=== PATIENT | female | born 1945 | race Caucasian/White ===

== ENCOUNTER 2018-04-21 12:54 | Outpatient (CLI) | payer MEDICARE, BC ==
--- NOTE | 2018-04-21 15:57 | RAD ---
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 FINDINGS: There appears to be a lumbarized S1. There is moderate narrowing at L4-5 and L5-S1 disc spaces. Flexi on and extension was not performed. No acute fracture. No listhesis. IMPRESSION: Moderate spondylosis lower lumbar spine. POS: C
--- NOTE | 2018-04-21 16:27 | MRI ---
NONCONTRAST MRI LUMBAR SPINE 04/21/18 HISTORY: Congenital spondylolisthesis. Patient complains of low back pain with pain running down both legs. FINDINGS: There is a subcentimeter increased T2 weighted signal intensity focus in the mid portion left kidney which is difficult to further characterize due to its small size. The common duct where visualized is dilated measuring 9 mm. The entire right upper quadrant is not im aged. This could be related to reservoir effect secondary to cholecystectomy, but given inability to evaluate for cholecystectomy, clinical correlation is recommended. However, the patient has not had p rior cholecystectomy, right upper quadrant ultrasound would then be warranted. The conus medullaris terminates at the L1-2 level. There is CSF prominence within the central spinal cord suggesting a very tiny syrinx. This is more dilated than typically seen for the central canal of the spinal cord. The most superior extent of this syrinx is not imaged on this exam. Multilevel degenerative changes are seen in the lumbar spine. There are mild disc bulges present at the T10-11 and T11-12 levels which marrow the ventral subarachn oid spaces at these levels. Based on sagittal imaging, the neural foramina appear patent. T12-L1 level: No significant disc bulge or disc herniation. Central spinal canal and neural foramina are patent. L1-2 level: There is a mild disc bulge. The central spinal canal and neural foramina are patent. L2-3 level: There is mild loss of intervertebral disc height. There is a mild disc osteophyte complex which results in slight effacement of the ventral aspect of the thecal sac. Mild facet degenerative changes are present. There is no significant narrowing of the central spinal canal, and the neural fo ramina are patent. L3-4 level: There is mild broad based disc osteophyte complex and facet hypertrophic changes. The fin dings result in mild to moderate narrowing of the central spinal canal with mild bilateral neural for aminal narrowing. L4-5 level: There is loss of intervertebral disc height. A broad based disc osteophyte complex is pre sent. Prominent facet hypertrophic changes are present in addition to ligamentous thickening. Finding s result in moderate narrowing of the central spinal canal as well as narrowing of the lateral recess es. Moderate right and mild left sided neural foraminal narrowing is present. L5-S1 level: There are end plate degenerative changes noted. There is loss of intervertebral disc hei ght. Broad based disc osteophyte complex is present with what appears to be a central disc protrusion . There are severe facet hypertrophic changes noted. Findings result in severe narrowing of the centr al spinal canal with mild to moderate bilateral neural foraminal narrowing. IMPRESSION: 1. Tiny syrinx within the visualized distal spinal cord. The most superior extent is not imaged on this exam. As a result, MRI of the thoracic spine with and without contrast is recommended for fu rther evaluation. 2. Multilevel degenerative changes in the lumbar spine with findings greatest at the L4-5 and L5 -S1 levels. There is severe narrowing of the central spinal canal at the L5-S1 level related to a dis c bulge as well as central disc protrusion and prominent facet hypertrophic changes and ligamentous t hickening. 3. Dilatation of the common duct. The right upper quadrant is not well imaged due to saturation band overlying this region. This could be related to reservoir effect from prior cholecystectomy, but this cannot be evaluated on this examination. If the patient has not had prior cholecystectomy, righ t upper quadrant ultrasound is suggested for further evaluation. 4. Subcentimeter difficult to characterize hyperintense T2 lesions in the mid portion left kidmerissa y. POS: [facility]
== END 2018-04-21 12:55 | disposition home or self-care (01) ==
LOC: TBSIIMAG 12:54
PROVIDERS: ATTEND Neurological Surgery
DX: Q76.2 Congenital spondylolisthesis (principal); M47.896 Other spondylosis, lumbar region; M47.897 Other spondylosis, lumbosacral region; G95.0 Syringomyelia and syringobulbia; M48.07 Spinal stenosis, lumbosacral region; M51.87 Other intervertebral disc disorders, lumbosacral region; M51.27 Other intervertebral disc displacement, lumbosacral region; K83.8 Other specified diseases of biliary tract; N28.9 Disorder of kidney and ureter, unspecified
CPT/HCPCS: 72100; 72148

== ENCOUNTER 2018-07-28 11:46 | Outpatient (CLI) | payer MEDICARE, BC ==
[2018-07-28 12:53] LABS: Hemoglobin 12.3 g/dL (12.0-16.0); Mean Corpuscular HGB CONC 31.3 g/dL (32.0-36.0); Mean Corpuscular Hemoglobin 31.7 pg (27.0-31.0); Mean Platelet Volume 7.3 fL (7.4-10.4); Platelet Count 322 thou/uL (130-400); Red Blood Cell (RBC) Count 3.87 mill/uL (4.20-5.40); White Blood Cell (WBC) Count 8.3 thou/uL (4.8-10.8)
[2018-07-28 13:16] LABS: Anion Gap 12 mmol/L (10-20); BUN (Urea Nitrogen) 14 mg/dL (9.8-20.1); Calc. Creatinine Clearance 0 mL/min (70-130); Calcium 9.2 mg/dL (7.8-10.44); Carbon Dioxide 26 mmol/L (23-31); Chloride 106 mmol/L (98-107); Estimated GFR-MDRD 69; Glucose 82 mg/dL (83-110); Potassium 3.9 mmol/L (3.5-5.1); Sodium 140 mmol/L (136-145)
--- NOTE | 2018-07-28 16:49 | EKG ---
Test Reason : Blood Pressure : / mmHG Vent. Rate : 058 BPM Atrial Rate : 058 BPM P-R Int : 170 ms QRS Dur : 080 ms QT Int : 460 ms P-R-T Axes : 045 060 023 degrees QTc Int : 451 ms Sinus bradycardia Low voltage QRS Borderline ECG When compared with ECG of 29-MAR-2013 11:38, Premature ventricular complexes are no longer Present Confirmed by DR. Julia PAULINO (3) on 07/28/2018 4:48:48 PM Referred By: [place] Confirmed By:DR. Julia PAULINO
== END 2018-07-28 11:47 | disposition home or self-care (01) ==
LOC: LABBT 11:46
PROVIDERS: ATTEND Neurological Surgery
DX: Z01.818 Encounter for other preprocedural examination (principal); M48.062 Spinal stenosis, lumbar region with neurogenic claudication; R00.1 Bradycardia, unspecified
CPT/HCPCS: 80048; 85027; 93005; 93010

== ENCOUNTER 2018-07-31 06:11 | Observation (INO) | payer MEDICARE, BC ==
[2018-07-28 12:05] VITALS: BMI 27.4
[2018-07-31] MEDS ORDERED: HYDROmorphone 2 MG/ML VIAL ONE (07:19)
[2018-07-31] MEDS ORDERED: CEFAZOLIN 2 GM/50 ML BAG ONE (07:22)
[2018-07-31] MEDS ORDERED: Midazolam HCl 2 mg/2 ml Vial ONE (07:22)
[2018-07-31] MEDS ORDERED: Fentanyl 100 MCG/2 ML VIAL ONE ×3 (07:22→09:59)
--- NOTE | 2018-07-31 09:16 | OP ---
DATE OF PROCEDURE: 07/31/2018 SURGEON: Zenon Farrar M.D. PIT WORKER POWER SHOVEL: Florecita Burt PA-C. PROCEDURE: L5-S1 laminectomy. PROCEDURE IN DETAIL: The patient was brought to the operating room and intubated. She was rolled in the prone position on gel-filled chest rolls. Incision was made exposing L5 and S1 and our level wa s confirmed by x-ray. We performed inferior L5 and superior S1 laminectomies, completely decompressi ng the S1 nerve roots bilaterally. The wound was then extensively irrigated. Immaculate hemostasis was secured. Vancomycin powder was applied and the wound was closed in anatomic layers.
[2018-07-31] MEDS ORDERED: Promethazine HCl 25 MG/ML VIAL IM PRN ×2 (09:29→10:58)
[2018-07-31] MEDS ORDERED: Promethazine HCl 25 MG/ML VIAL SLOW IVP PRN (09:29)
[2018-07-31] MEDS ORDERED: Ondansetron HCl/PF 4 MG/2 ML Vial IVP PRN (09:29)
[2018-07-31] MEDS ORDERED: Morphine 4 MG/ML VIAL SLOW IVP PRN (10:58)
[2018-07-31] MEDS ORDERED: tiZANidine HCl 4 MG TAB PO PRN (10:58)
[2018-07-31] MEDS ORDERED: Milk Of Magnesia 30 ML UDCUP PO PRN (10:58)
[2018-07-31] MEDS ORDERED: Ondansetron PF 4 MG/2 ML Vial IM PRN (10:58)
[2018-07-31] MEDS ORDERED: Promethazine HCl 12.5 MG SUPP PR PRN (10:58)
[2018-07-31] MEDS ORDERED: traMADol HCl 50 MG TAB PO PRN ×2 (10:58)
[2018-07-31] MEDS ORDERED: Mag-Al 1200 mg/1200 mg/30 ML UDCUP PO PRN (10:58)
[2018-07-31] MEDS ORDERED: Promethazine 25 MG TAB PO PRN (10:58)
[2018-07-31] MEDS ORDERED: Acetaminophen/Codeine 30-300mg Tablet PO PRN (10:58)
[2018-07-31] MEDS: Sodium Chloride 0.9% 1,000 ML IV SCH (11:43)
[2018-07-31] MEDS ORDERED: CEFAZOLIN/Water 2 GM/20 ML SYRINGE SLOW IVP SCH (14:00)
[2018-07-31] MEDS ORDERED: PROPOFOL 200 MG/20 ML VIAL ONE (15:03)
[2018-07-31] MEDS ORDERED: Ondansetron PF 4 MG/2 ML Vial ONE (15:03)
[2018-07-31] MEDS ORDERED: Glycopyrrolate 0.2 MG/ML 5 ML SYRINGE ONE (15:03)
[2018-07-31] MEDS ORDERED: Lidocaine 1% PF 5 ML VIAL ONE (15:03)
[2018-07-31] MEDS ORDERED: PHENYLEPHRINE-NS 100 MCG/ML 10 ML SYRINGE ONE (15:03)
[2018-07-31] MEDS ORDERED: Dexamethasone 20 MG/5 ML VIAL ONE (15:03)
[2018-07-31] MEDS: CEFAZOLIN 2 GM/50 ML-DEXTROSE 2 GM in Premix Bag 1 BAG IVPB SCH ×2 (15:54→22:08)
[2018-07-31] MEDS ORDERED: Atorvastatin Calcium 20 MG TAB PO SCH (21:00)
[2018-08-01] MEDS: Sodium Chloride 0.9% 1,000 ML IV SCH ×2 (01:26→12:46)
[2018-08-01] MEDS: Acetaminophen/Codeine 30-300mg Tablet PO PRN ×2 (03:41→12:30)
[2018-08-01] MEDS ORDERED: Folic Acid 1 MG TAB PO SCH (09:00)
[2018-08-01] MEDS ORDERED: Ascorbic Acid 500 mg Chewable Tablet PO SCH (09:00)
[2018-08-01] MEDS ORDERED: Escitalopram Oxalate 20 mg Tablet PO SCH (09:00)
[2018-08-01] MEDS ORDERED: Multivitamin W/ Minerals 1 TAB PO SCH (09:00)
--- NOTE | 2018-08-01 12:08 | DIS-2 ---
DATE OF ADMISSION: 07/31/2018 DATE OF DISCHARGE: 08/01/2018 ATTENDING PHYSICIAN: Dr. Zenon Farrar HOSPITAL COURSE: The patient is a 73-year-old female, status post L5-S1 decompression for lumbar stenosis. Following her surgery, she was admitted to the med/surg control for pain control an d mobilization. Following her surgery, she did develop some nausea and vomiting, but this improved o vernight and the next morning after administration of Zofran and Phenergan. The following morning, s he was able to tolerate her breakfast. She reports significantly improved pain. She has been up amb ulating throughout the department and voiding appropriately. I have visited with the patient postoperative day #1. She is awake, alert, in no acute distress. Sh gautam is lying comfortably in the bed. She has 5/5 strength throughout. No focal motor weakness. Her i ncision is dry and intact. We will plan to dismiss the patient to home. I have provided her with prescription for hydrocodone, a muscle relaxer, and Phenergan for as needed nausea and vomiting. We discussed home care and she dover s been provided with a list of instructions. We will plan to follow up with the patient in approxima tely 2 weeks for recheck. Please reach out to Neurosurgery for additional questions or concerns.
[2018-08-01 12:09] VITALS: BP 161/77; TEMP 97.9
== END 2018-08-01 13:23 | disposition home or self-care (01) ==
LOC: SDC 06:11 → SURG B 10:22
PROVIDERS: ADMIT Neurological Surgery; ATTEND Neurological Surgery
PROC: 01NB0ZZ Release Lumbar Nerve, Open Approach (ICD-10-PCS; principal; 2018-07-31)
DX: M48.061 Spinal stenosis, lumbar region without neurogenic claudication (principal); M47.897 Other spondylosis, lumbosacral region; I10 Essential (primary) hypertension; E78.5 Hyperlipidemia, unspecified; Z79.899 Other long term (current) drug therapy; Z88.2 Allergy status to sulfonamides; Z88.5 Allergy status to narcotic agent
CPT/HCPCS: 63047; 76001; 96361; 96365; 96374; 96375; 96376; G0378; J1100; J1170; J2001; J2250; J2270; J2405; J2550; J2704; J3010; J3370

== ENCOUNTER 2018-08-21 10:58 | Inpatient (IN) | payer MEDICARE, BC ==
[2018-08-21 13:11] LABS: #Lymphocytes 2.3 thou/uL (1.20-3.40); #Monocytes 1.2 thou/uL (0.11-0.59); #Neutrophils 14.7 thou/uL (1.40-6.50); %Basophils 0.1 % (0.0-1.0); %Lymphocytes 12.6 % (21.0-51.0); %Monocytes 6.5 % (0.0-10.0); %Neutrophils 80.8 % (42.0-75.0); Hemoglobin 12.3 g/dL (12.0-16.0); Mean Corpuscular HGB CONC 32.5 g/dL (32.0-36.0); Mean Corpuscular Hemoglobin 31.9 pg (27.0-31.0); Mean Platelet Volume 7.4 fL (7.4-10.4); Platelet Count 338 thou/uL (130-400); RBC Distribution Width 11.2 % (11.5-14.5); Red Blood Cell (RBC) Count 3.87 mill/uL (4.20-5.40); White Blood Cell (WBC) Count 18.2 thou/uL (4.8-10.8)
[2018-08-21] MEDS ORDERED: Morphine 2 MG/ML SYRINGE ONE ×2 (13:16→14:42)
[2018-08-21 13:23] LABS: INR-International Normal Ratio 1.1; PTT 27.9 SEC (22.9-36.1); Prothrombin Time 14.3 SEC (12.0-14.7)
[2018-08-21 13:43] LABS: Anion Gap 14 mmol/L (10-20); BUN (Urea Nitrogen) 17 mg/dL (9.8-20.1); Calc. Creatinine Clearance 0 mL/min (70-130); Calcium 9.4 mg/dL (7.8-10.44); Carbon Dioxide 24 mmol/L (23-31); Chloride 103 mmol/L (98-107); Estimated GFR-MDRD 73; Glucose 116 mg/dL (83-110); Sodium 137 mmol/L (136-145)
[2018-08-21] MEDS ORDERED: PROPOFOL 200 MG/20 ML VIAL ONE (14:23)
[2018-08-21] MEDS ORDERED: Fentanyl 100 MCG/2 ML VIAL ONE ×5 (15:51→20:16)
[2018-08-21] MEDS ORDERED: Lidocaine 1% w/Epinephrine 1:100K 30 ML VIAL ONE (15:57)
[2018-08-21] MEDS ORDERED: CEFAZOLIN 2 GM/50 ML BAG ONE (16:09)
[2018-08-21] MEDS ORDERED: Midazolam HCl 2 mg/2 ml Vial ONE (16:25)
[2018-08-21] MEDS ORDERED: PROPOFOL 20 ML ONE (16:32)
[2018-08-21] MEDS ORDERED: Promethazine HCl 25 MG/ML VIAL SLOW IVP PRN (17:00)
[2018-08-21] MEDS ORDERED: Ondansetron HCl/PF 4 MG/2 ML Vial IVP PRN (17:00)
[2018-08-21] MEDS ORDERED: Promethazine HCl 25 MG/ML VIAL IM PRN ×2 (17:00→17:19)
[2018-08-21] MEDS ORDERED: Promethazine 25 MG TAB PO PRN (17:19)
[2018-08-21] MEDS ORDERED: diphenhydrAMINE 25 MG CAP PO PRN (17:19)
[2018-08-21] MEDS ORDERED: Promethazine HCl 12.5 MG SUPP PR PRN (17:19)
[2018-08-21] MEDS ORDERED: tiZANidine HCl 4 MG TAB PO PRN (17:19)
[2018-08-21] MEDS ORDERED: traMADol HCl 50 MG TAB PO PRN ×2 (17:19)
[2018-08-21] MEDS ORDERED: Mag-Al 1200 mg/1200 mg/30 ML UDCUP PO PRN (17:19)
[2018-08-21] MEDS ORDERED: Milk Of Magnesia 30 ML UDCUP PO PRN (17:19)
[2018-08-21] MEDS ORDERED: diphenhydrAMINE 50 MG/ML VIAL IVP PRN (17:19)
[2018-08-21] MEDS ORDERED: Ondansetron PF 4 MG/2 ML Vial IM PRN (17:21)
[2018-08-21 22:06] VITALS: BMI 27.4
[2018-08-21] MEDS ORDERED: Atorvastatin Calcium 20 MG TAB PO SCH (22:15)
[2018-08-21] MEDS: Morphine 4 MG/ML VIAL SLOW IVP PRN (22:29)
[2018-08-21] MEDS: Sodium Chloride 0.9% 1,000 ML IV SCH (22:46)
[2018-08-21] MEDS: CEFAZOLIN 2 GM/50 ML-DEXTROSE 2 GM in Premix Bag 1 BAG IVPB SCH (23:20)
--- NOTE | 2018-08-22 00:12 | HP ---
Ms. James is a 73-year-old woman, well known to me from a previous L5-S1 decompression, who has had issues with CSF drainage from the wound. She has failed oversewing this in the office, and I am recommending proceeding with placement of a lumbar drain and oversewing the wound with anesthesia support. I discussed this with her, and she expressed understanding and wished to proceed. Job ID: [id number]
--- NOTE | 2018-08-22 00:13 | OP ---
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 PROCEDURES PERFORMED: Oversewing lumbar wound and placement of lumbar drain. DESCRIPTION OF PROCEDURE: The patient was brought to the operating room and monitored anesthesia care was instituted. A lumbar drain was placed without difficulty at approximately the L3-L4 level. Using an 18-gauge needle, we percutaneously drained the CSF within the wound and approximately 50 mL was aspirated. We next oversew the wound using a locking running nylon suture. Job ID: [id number] [facility]
--- NOTE | 2018-08-22 00:55 | HP ---
HISTORY OF PRESENT ILLNESS: The patient is a 73-year-old relatively healthy female, status post L5-S1 laminectomy on 07/31/2018. Following her surgery, she developed wound drainage, which was clear and consistent with CSF. This was oversewn in the office, but drainage returned, therefore, the patient was brought to [facility] for plans for lumbar drain placement today. Her main complaint is low back pain and mild postural headaches and nausea. She denies any fever, leg weakness, numbness, tingling or bowel/bladder issues PAST MEDICAL HISTORY: Hypertension, hyperlipidemia, and autoimmune morphea. PAST SURGICAL HISTORY: Hysterectomy, splenectomy, and L5-S1 laminectomy. FAMILY HISTORY: Noncontributory. SOCIAL HISTORY: The patient does not smoke, drink or use any drugs. She is . ALLERGIES: SHE IS ALLERGIC TO, 1. SULFA. 2. VICODIN. REVIEW OF SYSTEMS: Per HPI. PHYSICAL EXAMINATION: GENERAL : The patient is sitting in the chair comfortably and in no acute distress. HEENT: Head, normocephalic and atraumatic. Eyes, PERRLA. Extraocular movements intact. ENT, oral mucosa is pink and intact, and moist. NECK: Her neck is nontender to palpation. She has very active range of motion. No meningismus. No nuchal rigidity. CARDIAC: Regular rate and rhythm. PULMONARY: She is breathing comfortably with symmetric chest expansion. No evidence of dyspnea. MUSCULOSKELETAL: Free active range of motion of all extremities. No focal motor weakness. BACK: She has a well-healing incision with 2 vertical mattress oversewn stitches in place along the middle incisions, there is a small area of CSF leakage over the anterior part of the incision. There is no redness, edema, or any signs of infection. She is tender to palpation diffusely over the incision and lower lumbar spine. NEUROLOGIC: A and O x4. No focal neurologic deficits. 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 She will be admitted today and a lumbar drain will be placed. We will plan to monitor on the Med-Surg floor and drain 10 mL an hour. She will also be treated with Ancef prophylactically. We will monitor the incision as well as the patients symptoms closely. Discussed this plan with Dr. Farrar, who is in agreement. Job ID: [id number] [facility]
[2018-08-22] MEDS: Sodium Chloride 0.9% 1,000 ML IV SCH ×2 (01:09→11:37)
[2018-08-22] MEDS: Morphine 4 MG/ML VIAL SLOW IVP PRN ×2 (06:17→08:34)
[2018-08-22] MEDS: CEFAZOLIN 2 GM/50 ML-DEXTROSE 2 GM in Premix Bag 1 BAG IVPB SCH ×2 (07:59→17:43)
[2018-08-22] MEDS: Ascorbic Acid 500 mg Chewable Tablet PO SCH (08:35)
[2018-08-22] MEDS: Folic Acid 1 MG TAB PO SCH (08:35)
[2018-08-22] MEDS: Escitalopram Oxalate 20 mg Tablet PO SCH (08:36)
[2018-08-22] MEDS: Multivitamin W/ Minerals 1 TAB PO SCH (08:36)
[2018-08-22] MEDS: HYDROcodone/Acetaminophen 10/325 mg Tablet PO PRN ×3 (13:05→23:14)
[2018-08-22] MEDS: Atorvastatin Calcium 20 MG TAB PO SCH (20:31)
[2018-08-23] MEDS: CEFAZOLIN 2 GM/50 ML-DEXTROSE 2 GM in Premix Bag 1 BAG IVPB SCH ×2 (00:23→08:15)
[2018-08-23] MEDS: HYDROcodone/Acetaminophen 10/325 mg Tablet PO PRN ×4 (05:33→21:24)
[2018-08-23] MEDS: Folic Acid 1 MG TAB PO SCH (08:16)
[2018-08-23] MEDS: Ascorbic Acid 500 mg Chewable Tablet PO SCH (08:16)
[2018-08-23] MEDS: Escitalopram Oxalate 20 mg Tablet PO SCH (08:16)
[2018-08-23] MEDS: Multivitamin W/ Minerals 1 TAB PO SCH (08:17)
[2018-08-23] MEDS: Sodium Chloride 0.9% 1,000 ML IV SCH (09:05)
[2018-08-23] MEDS ORDERED: Iopamidol 370 76% 100 ML VIAL ONE (10:43)
--- NOTE | 2018-08-23 14:52 | RAD ---
SINGLE VIEW OF THE CHEST: Comparison: None. History: Low oxygen saturation. FINDINGS: Single view of the chest shows an enlarged cardiomediastinal silhouette. There is no evidence of cons olidation, mass or pleural effusion. Hardware is seen in the cervical spine. IMPRESSION: No evidence of acute cardiopulmonary disease. POS: [facility]
[2018-08-23 15:18] LABS: #Eosinphils 0.1 thou/uL (0.0-0.7); #Lymphocytes 1.7 thou/uL (1.20-3.40); #Neutrophils 12.4 thou/uL (1.40-6.50); %Basophils 0.3 % (0.0-1.0); %Eosinophils 0.5 % (0.0-10.0); %Lymphocytes 10.9 % (21.0-51.0); %Monocytes 6.7 % (0.0-10.0); %Neutrophils 81.7 % (42.0-75.0); Hemoglobin 11.6 g/dL (12.0-16.0); Mean Corpuscular HGB CONC 32.1 g/dL (32.0-36.0); Mean Corpuscular Hemoglobin 31.8 pg (27.0-31.0); Mean Platelet Volume 7.5 fL (7.4-10.4); Platelet Count 282 thou/uL (130-400); RBC Distribution Width 11.1 % (11.5-14.5); Red Blood Cell (RBC) Count 3.64 mill/uL (4.20-5.40); White Blood Cell (WBC) Count 15.2 thou/uL (4.8-10.8)
[2018-08-23] MEDS ORDERED: Vancomycin HCl 1 GM in Premix Bag 1 BAG IVPB SCH (15:30)
[2018-08-23 15:36] LABS: Anion Gap 12 mmol/L (10-20); BUN (Urea Nitrogen) 12 mg/dL (9.8-20.1); Calc. Creatinine Clearance 80 mL/min (70-130); Calcium 8.8 mg/dL (7.8-10.44); Carbon Dioxide 24 mmol/L (23-31); Chloride 103 mmol/L (98-107); Estimated GFR-MDRD 88; Glucose 96 mg/dL (83-110); Potassium 3.6 mmol/L (3.5-5.1); Sodium 135 mmol/L (136-145)
--- NOTE | 2018-08-23 15:42 | CON ---
DATE OF CONSULTATION: HISTORY: Ms. James is doing quite well. She is having a modest headache, which is not surprising. She is not having much in the way of back and buttock pain, particularly compared to what it was before the placement of the lumbar drain. Her dressing remains reasonably dry. We will continue with the lumbar drainage, hopefully for a period of 1 full week if possible, but at least for 4 to 5 days depending on the drain function. I discussed the plan with her in detail. Job ID: [id number]
[2018-08-23] MEDS ORDERED: MEROPENEM 1 GM/50 ML 1 GM in Premix Bag 1 BAG IVPB SCH (16:00)
[2018-08-23] MEDS ORDERED: Acetaminophen 325 MG TAB PO PRN (16:37)
[2018-08-23] MEDS ORDERED: Sodium Chloride 0.9% 1,000 ML IV SCH (16:45)
[2018-08-23] MEDS ORDERED: Vancomycin HCl 1.75 GM in Sodium Chloride 0.9% 500 ML IVPB SCH (17:00)
[2018-08-23 17:03] LABS: CSF, Glucose 18 mg/dl (40-70)
[2018-08-23 17:23] LABS: ALT (SGPT) 12 U/L (8-55); AST (SGOT) 30 U/L (5-34); Albumin 3.8 g/dL (3.4-4.8); Alkaline Phosphatase 71 U/L (40-150); Bilirubin, Direct 0.2 mg/dL (0.1-0.3); Bilirubin, Total 0.3 mg/dL (0.2-1.2); Lipase 11 U/L (8-78); Protein, Total 6.7 g/dL (6.0-8.3)
[2018-08-23 17:32] LABS: CSF, Protein 278 mg/dL (15-40)
--- NOTE | 2018-08-23 17:34 | ULT ---
BILATERAL LOWER EXTREMITY VENOUS ULTRASOUND WITH DOPPLER: Date: 08/23/18 HISTORY: Evaluate for deep vein thrombus in the left and right lower extremity. COMPARISON: None. TECHNIQUE: Price scale, color flow, Doppler imaging, and spectral waveform analysis performed of the left and rig ht lower extremity venous system. FINDINGS: Bilaterally, there is compressibility, presence of flow, and augmentation in the common femoral, femo ral vein, and popliteal vein. There is flow in bilateral greater saphenous veins, profunda veins, and posterior tibial veins. IMPRESSION: No evidence of thrombus in the left or right lower extremity deep venous system. POS: [facility]
[2018-08-23 17:43] LABS: CSF Source CSF; Clarity Cloudy/Turbid (Clear); RBC Count - Manual 11 /cumm (None Seen); Tube # EDTA; WBC/NonHematics Count - Manual 3340 /cumm (0-5)
--- NOTE | 2018-08-23 17:44 | PDOC.PN ---
- Subjective Encounter Start Date: 08/23/18 Encounter Start Time: 16:00 Patient seen and examined for med mgnt. Mentation improvng. No cough/SOB/ wheezing/N/V. - Objective MAR Reviewed: Yes Vital Signs & Weight: Vital Signs (12 hours) Temp Pulse Resp BP Pulse Ox 08/23/18 16:00 95 08/23/18 15:00 100.1 F H 88 18 170/77 H 96 08/23/18 10:54 99.6 F 74 16 136/69 94 L 08/23/18 07:30 97.6 F 64 16 149/81 H 95 08/23/18 07:19 96 Weight Weight 150 lb 4.8 oz I&O: 08/22/18 08/23/18 08/24/18 06:59 06:59 06:59 Intake Total 260 Output Total 90 1530 110 Balance -90 -1270 -110 Result Diagrams: 08/23/18 15:04 08/23/18 15:04 Additional Labs: Microbiology 08/23/18 15:30 Lumbar Body Fluid Culture - Preliminary Laboratory Tests 08/23/18 08/23/18 08/23/18 15:04 15:30 15:30 ESR Westergren 24 Fluid Clarity Cloudy/Turbid H Fluid WBC (Manual) 3340 H Fluid RBC (Manual) 11 H Fluid Seg Neutrophil % 86 H* CSF Glucose 18 L CSF Total Protein 278 H Radiology Reviewed by me: Yes (CXR - No infiltrate) EKG Reviewed by me: Yes (Tele SR) Phys Exam - Physical Examination Ill appearing - Somnolent - opens eyes appropriately HEENT: PERRLA Neck: no nodes, no JVD Respiratory: no wheezing, no rales, no rhonchi, clear to auscultation bilateral Cardiovascular: RRR, no rub no heaves/pulsations Gastrointestinal: soft, non-tender, no distention, positive bowel sounds Musculoskeletal: no edema, pulses present Neurological: non-focal, normal sensation, moves all 4 limbs Psychiatric: normal affect, A&O x 3 (slow to respond) Skin: no rash, normal turgor Dx/Plan (1) Meningitis Code(s): G03.9 - MENINGITIS, UNSPECIFIED Status: Acute (2) Sepsis with acute organ dysfunction Code(s): A41.9 - SEPSIS, UNSPECIFIED ORGANISM; R65.20 - SEVERE SEPSIS WITHOUT SEPTIC SHOCK Status: Acute (3) HLD (hyperlipidemia) Code(s): E78.5 - HYPERLIPIDEMIA, UNSPECIFIED Status: Acute (4) HTN (hypertension) Code(s): I10 - ESSENTIAL (PRIMARY) HYPERTENSION Status: Acute (5) GERD (gastroesophageal reflux disease) Code(s): K21.9 - GASTRO-ESOPHAGEAL REFLUX DISEASE WITHOUT ESOPHAGITIS Status: Acute (6) Depression Code(s): F32.9 - MAJOR DEPRESSIVE DISORDER, SINGLE EPISODE, UNSPECIFIED Status : Acute - Plan DVT proph w/SCDs * IV Vancomycin to target trough between 20-30 per ID * IV Meropenem 2 gm Q8hr * Dr Castellon notified * Plan d/w primary service * Start IVF * AM labs * Thank you for this consultation. Will follow * Full code. DPOA - self Review of Systems - Review of Systems Respiratory: negative: Cough, Dry, Shortness of Breath, Hemoptysis, SOB with Excertion, Pleuritic Pain, Sputum, Wheezing Cardiovascular: negative: chest pain, palpitations, orthopnea, paroxysmal nocturnal dyspnea, edema, light headedness, other Gastrointestinal: negative: Nausea, Vomiting, Abdominal Pain, Diarrhea, Constipation, Melena, Hematochezia, Other Neurological: Confusion (earlier today), Other (headache - gen.). negative: Weakness, Numbness, Incoordination, Change in Speech, Seizures - Medications/Allergies Allergies/Adverse Reactions: Allergies Allergy/AdvReac Type Severity Reaction Status Date / Time hydrocodone [Hydrocodone] Allergy Verified 07/28/18 12:06 Sulfa (Sulfonamide Allergy Verified 07/28/18 12:06 Antibiotics) Medications: Current Medications Acetaminophen (Tylenol) 650 mg PO Q4H PRN PRN Reason: Headache/Fever/Mild Pain (1-3) Hydrocodone Bitart/Acetaminophen ([place] 10/325) 1 tab PO Q4H PRN PRN Reason: PAIN (1-3) Hydrocodone Bitart/Acetaminophen ([place] 10/325) 2 tab PO Q4H PRN PRN Reason: PAIN (4-6) Last Admin: 08/23/18 16:55 Dose: 2 tab Al Hydroxide/Mg Hydroxide (Maalox) 30 ml PO Q4H PRN PRN Reason: Heartburn or Indigestion Ascorbic Acid (Vitamin C) 1,000 mg PO DAILY [place] Last Admin: 08/23/18 08:16 Dose: 1,000 mg Atorvastatin Calcium (Lipitor) 20 mg PO HS [facility] Last Admin: 08/22/18 20:31 Dose: 20 mg Cholecalciferol (Vitamin D3) 1,000 units PO DAILY [facility] Last Admin: 08/23/18 08:17 Dose: 1,000 units Diphenhydramine HCl (Benadryl) 25 mg PO Q6H PRN PRN Reason: Itching Diphenhydramine HCl (Benadryl) 25 mg IVP Q6H PRN PRN Reason: Itching Escitalopram Oxalate (Lexapro) 20 mg PO DAILY [facility] Last Admin: 08/23/18 08:16 Dose: 20 mg Folic Acid (Folvite) 0.5 mg PO DAILY [facility] Last Admin: 08/23/18 08:16 Dose: 0.5 mg Meropenem 1 gm/ Device 50 mls @ 100 mls/hr IVPB 0800,1600,2359 [facility] Last Admin: 08/23/18 17:02 Dose: 50 mls Vancomycin HCl 1.75 gm/ Sodium (Chloride) 500 mls @ 250 mls/hr IVPB NOW [place] Stop: 08/23/18 20:00 Last Admin: 08/23/18 17:02 Dose: 500 mls Vancomycin HCl 1.25 gm/ Sodium (Chloride) 250 mls @ 166.667 mls/hr IVPB Q24HR@ 1700 [facility] Sodium Chloride (Normal Saline 0.9%) 1,000 mls @ 125 mls/hr IV .Q8H [facility] Last Admin: 08/23/18 16:54 Dose: 1,000 mls Iron/Minerals/Multivitamins (Theragran M) 1 tab PO DAILY [facility] Last Admin: 08/23/18 08:17 Dose: 1 tab Magnesium Hydroxide (Milk Of Magnesium) 30 ml PO Q12H PRN PRN Reason: Constipation Miscellaneous Medication (Pharmacy To Dose) 1 each IVPB PRN PRN PRN Reason: Pharmacy to dose Morphine Sulfate (Morphine) 4 mg SLOW IVP Q1H PRN PRN Reason: SEVERE BREAKTHROUGH PAIN Last Admin: 08/22/18 08:34 Dose: 4 mg Morphine Sulfate (Morphine) 2 mg SLOW IVP Q1H PRN PRN Reason: Moderate Breakthrough Pain Last Admin: 08/22/18 06:17 Dose: 2 mg Ondansetron HCl (Zofran) 4 mg IM Q8H PRN PRN Reason: Nausea/Vomiting Last Admin: 08/23/18 10:07 Dose: 4 mg Pantoprazole Sodium (Protonix) 40 mg PO DAILY [facility] Last Admin: 08/23/18 08:17 Dose: 40 mg Promethazine HCl (Phenergan) 12.5 mg IM Q4H PRN PRN Reason: Nausea/Vomiting Promethazine HCl (Phenergan) 12.5 mg PO Q4H PRN PRN Reason: Nausea/Vomiting Promethazine HCl (Phenergan Suppository) 12.5 mg UT Q4H PRN PRN Reason: Nausea/Vomiting Senna/Docusate Sodium (Senokot S) 2 tab PO BID [facility] Sodium Chloride (Flush - Normal Saline) 10 ml IVF Q12HR [facility] Last Admin: 08/23/18 08:21 Dose: 10 ml Sodium Chloride (Flush - Normal Saline) 10 ml IVF PRN PRN PRN Reason: Saline Flush Last Admin: 08/23/18 00:24 Dose: 10 ml Tizanidine HCl (Zanaflex) 4 mg PO Q6H PRN PRN Reason: MUSCLE SPASM Tramadol HCl (Ultram) 50 mg PO Q6H PRN PRN Reason: PAIN (1-3) Tramadol HCl (Ultram) 100 mg PO Q6H PRN PRN Reason: PAIN (4-6)
[2018-08-23 17:48] LABS: Cell Count Non Hematic 2 %; Lymphocytes 12 %; Segmented Neutrophils 86 %
[2018-08-23 18:02] LABS: Bilirubin Negative (Negative); Blood, Urine Negative (Negative); Clarity CLEAR (Clear); Glucose, Urine (Dipstick) Negative (Negative); Leukocyte Negative (Negative); Nitrite Negative (Negative); Protein, Urine (Dipstick) Trace mg/dL (Neg-Trace); Urobilinogen 0.2 mg/dL (0.2-1.0); pH, Urine 5.5 (5.0-9.0)
[2018-08-23 18:06] LABS: Specific Gravity, Urine 1.044 (1.002-1.036)
--- NOTE | 2018-08-23 18:16 | CT ---
CTA THORAX WITH CONTRAST: 08/23/18 at 3:58 p.m. (Computed Tomographic Angiography, chest(noncoronary) with contrast material, and image postprocessin g) (PE protocol) HISTORY: 73-year-old female with dyspnea. TECHNIQUE: IV injection of iodinated contrast: 100 mL of Isovue 370. Scan acquisition timing attempted to coincide with iodinated contrast bolus reaching maximal density in pulmonary arteries. 3D MIP reconstructions. FINDINGS: There is no evidence of pulmonary thromboembolism. Tortuosity and mild ectasia of great vessels. Mild cardiomegaly. Tiny left pleural effusion. No right pleural effusion. Broad, thin, flat rind of depen dent atelectasis at the posterior aspects of the bilateral lower lobes broadly abutting the posterior pleural surfaces. Small plate-like pulmonary opacity at medial base of left lower lobe consistent wi th another region of subsegmental atelectasis. No consolidation in the upper lobes. No pneumothorax. Mildly enlarged mediastinal lymph nodes, nonspecific. There is a thin catheter within the lower thora cic spinal canal and upper lumbar spinal canal, incompletely visualized. IMPRESSION: 1. No evidence of pulmonary thromboembolism. 2. Other findings as described above. damon[] POS: [facility]
[2018-08-23] MEDS: D5 1/2 NS w/20 mEq KCL 1,000 ML IV SCH (18:43)
[2018-08-23] MEDS: Senokot S 8.6-50 MG TAB PO SCH (19:55)
[2018-08-23] MEDS: Atorvastatin Calcium 20 MG TAB PO SCH (19:55)
[2018-08-23] MEDS: Morphine 4 MG/ML VIAL SLOW IVP PRN (19:56)
[2018-08-23] MEDS: Meropenem 2 GM, Admixture Fee 1 EACH in Sodium Chloride 0.9% 100 ML IVPB SCH (21:26)
[2018-08-24] MEDS: HYDROcodone/Acetaminophen 10/325 mg Tablet PO PRN ×4 (02:59→19:59)
[2018-08-24] MEDS: D5 1/2 NS w/20 mEq KCL 1,000 ML IV SCH ×2 (02:59→15:08)
[2018-08-24 04:29] LABS: #Basophils 0.1 thou/uL (0.0-0.2); #Eosinphils 0.1 thou/uL (0.0-0.7); #Lymphocytes 2.9 thou/uL (1.20-3.40); #Monocytes 1.7 thou/uL (0.11-0.59); #Neutrophils 11.3 thou/uL (1.40-6.50); %Basophils 0.4 % (0.0-1.0); %Eosinophils 0.3 % (0.0-10.0); %Lymphocytes 18.2 % (21.0-51.0); %Monocytes 10.5 % (0.0-10.0); %Neutrophils 70.6 % (42.0-75.0); Hemoglobin 10.4 g/dL (12.0-16.0); Mean Corpuscular HGB CONC 33.8 g/dL (32.0-36.0); Mean Corpuscular Hemoglobin 33.7 pg (27.0-31.0); Mean Corpuscular Volume 99.6 fL (78.0-98.0); Mean Platelet Volume 7.6 fL (7.4-10.4); Platelet Count 276 thou/uL (130-400); RBC Distribution Width 11.1 % (11.5-14.5); Red Blood Cell (RBC) Count 3.08 mill/uL (4.20-5.40); White Blood Cell (WBC) Count 16.1 thou/uL (4.8-10.8)
[2018-08-24 04:47] LABS: ALT (SGPT) 8 U/L (8-55); AST (SGOT) 21 U/L (5-34); Albumin 3.3 g/dL (3.4-4.8); Alkaline Phosphatase 59 U/L (40-150); Anion Gap 10 mmol/L (10-20); BUN (Urea Nitrogen) 8 mg/dL (9.8-20.1); Bilirubin, Total 0.5 mg/dL (0.2-1.2); Calc. Creatinine Clearance 86 mL/min (70-130); Calcium 8.4 mg/dL (7.8-10.44); Carbon Dioxide 28 mmol/L (23-31); Chloride 104 mmol/L (98-107); Estimated GFR-MDRD Greater than 90; Globulin 2.5 g/dL (2.4-3.5); Glucose 119 mg/dL (83-110); Magnesium 2.1 mg/dL (1.6-2.6); Potassium 3.6 mmol/L (3.5-5.1); Protein, Total 5.8 g/dL (6.0-8.3); Sodium 138 mmol/L (136-145)
[2018-08-24] MEDS: Vancomycin HCl 1.25 GM in Sodium Chloride 0.9% 250 ML 250 ML IVPB SCH ×2 (05:04→16:59)
[2018-08-24] MEDS: Meropenem 2 GM, Admixture Fee 1 EACH in Sodium Chloride 0.9% 100 ML IVPB SCH ×3 (06:35→21:49)
[2018-08-24] MEDS: Saccharomyces boulardii 250 MG CAP PO SCH (09:30)
[2018-08-24] MEDS: Senokot S 8.6-50 MG TAB PO SCH ×2 (09:30→20:00)
[2018-08-24] MEDS: Folic Acid 1 MG TAB PO SCH (09:30)
[2018-08-24] MEDS: Ascorbic Acid 500 mg Chewable Tablet PO SCH (09:30)
[2018-08-24] MEDS: Escitalopram Oxalate 20 mg Tablet PO SCH (09:31)
[2018-08-24] MEDS: Multivitamin W/ Minerals 1 TAB PO SCH (09:31)
--- NOTE | 2018-08-24 13:53 | PRG ---
DATE OF SERVICE: 08/24/2018 SUBJECTIVE: Ms. James is alert and appropriate today. Yesterday, she spiked a fever, had some modest change in mentation and generally felt terrible. An evaluation included CT angiography and ultrasound of the legs, which was negative for pulmonary embolus. No other specific focus of infection has been found with the exception of CSF studies that revealed elevated white count, elevated protein, and decreased glucose. Gram-stain was negative for bacteria. The patient certainly is at risk for meningitis given the CSF fistula that she had for some days prior to hospitalization. Postsurgical, the CSF findings could be inflammatory; however, I agree with the broad-spectrum antibiotics. Appreciate the excellent medical care. We anticipate continuing lumbar drainage through the weekend. Job ID: [id number]
[2018-08-24] MEDS: Morphine 4 MG/ML VIAL SLOW IVP PRN (17:00)
[2018-08-24] MEDS ORDERED: Vancomycin HCl 1.25 GM in Sodium Chloride 0.9% 250 ML 250 ML IVPB SCH (17:00)
[2018-08-24] MEDS: Atorvastatin Calcium 20 MG TAB PO SCH (20:00)
--- NOTE | 2018-08-24 21:13 | CON ---
DATE OF CONSULTATION: REASON FOR CONSULTATION: Meningitis. HISTORY OF PRESENT ILLNESS: A 73-year-old with history of hypertension and some autoimmune phenomena in the past, who developed radiculopathy and underwent laminectomy L5-S1 in mid July this year. Developed CSF leak, which has failed conservative management and she was admitted for lumbar drain on 08/21 and now developed meningitis. She has been started on broad-spectrum coverage. She is feeling better today. No headaches at this moment. No sore throat, odynophagia , or dysphagia. No vomiting. No respiratory symptoms or abdominal pain, a little bit of back pain. No more radiculopathy symptoms. No joint symptoms. PAST MEDICAL HISTORY: Hypertension, hyperlipidemia, and some form of autoimmune disease. SURGICAL HISTORY: Hysterectomy, splenectomy, and L5-S1 laminectomy. FAMILY HISTORY: Noncontributory. SOCIAL HISTORY: Nonsmoker. . ALLERGIES: SULFA DRUGS AND VICODIN. VICODIN ALLERGY IS MORE OF AN ADVERSE REACTION. CURRENT MEDICATIONS: 1. [place]. 2. Maalox. 3. Vitamin C. 4. Lipitor. 5. Lexapro. 6. Folvite. 7. Meropenem. 8. Morphine. 9. Protonix. 10. Phenergan. 11. Senokot. 12. Zanaflex. 13. Ultram. 14. Vancomycin. PHYSICAL EXAMINATION: VITAL SIGNS: T-max 100.6. She is currently afebrile. BP 108/91, pulse 66, respirations 16, and O2 saturation 100%, and the patient has a peripheral IV access in lumbar drain. The CSF is kind of cloudy. HEENT: No lymphadenopathy. Ocular movements are conjugate. Pupils are equal. Nose and oral cavity exam normal. NECK: A little stiff. HEART: S1 and S2. Regular rate. LUNGS: Clear to auscultation and percussion. ABDOMEN: Soft, nondistended, and nontender. EXTREMITIES: Moves extremities equally. Pulses are 1+ in dorsalis pedis. Cognitive function appears to be intact. LABORATORY DATA: White cell count of 18,000, down to 16,000 at this moment; hemoglobin 10.4; platelets 276; and differential with 80% neutrophils, down to 70% neutrophils at this time. Her creatinine is normal. Liver profile normal. Albumin 3.3, down from 3.8. Urinalysis with 40 ketones, otherwise normal. CSF with 3300 WBCs, predominance of mature neutrophils. Glucose 18 and protein 278. Microbiology, the Gram stain did not show any organisms and no growth at 12 hours. Blood cultures no growth thus far. We have a chest CT done on admission with angiogram with no pulmonary embolism. ASSESSMENT: Laminectomy L5-S1 with CSF leak and meningitis, which is associated with the foreign body in the subarachnoid space. Usual pathogens including methicillin-susceptible Staphylococcus aureus/methicillin-resistant Staphylococcus aureus, gram-negative rods, streptococci and enterococcus are the more likely pathogens involved in this kind of process. Yeast or Amarilis species less likely, but can happen sometimes. Continue current regimen. Awaiting for culture results. Hopefully, foreign body can be removed maybe Tuesday and then continuation of antimicrobial therapy for probably around 7 to 10 days following the completion of the lumbar drain procedure. If staphylococci is retrieved, then I would extend that for 21 days total duration of antimicrobial therapy. Job ID: [id number] [facility]
--- NOTE | 2018-08-24 22:18 | PDOC.PN ---
- Subjective Encounter Start Date: 08/24/18 Encounter Start Time: 10:00 Patient seen and examined for med mngt. Feels better. No new complaints. No overnight events - Objective MAR Reviewed: Yes Vital Signs & Weight: Vital Signs (12 hours) Temp Pulse Resp BP Pulse Ox 08/24/18 19:46 98.1 F 76 18 124/65 90 L 08/24/18 15:09 98.6 F 69 16 110/55 L 98 08/24/18 10:54 97.9 F 66 16 108/91 H 100 Weight Weight 150 lb 4.8 oz I&O: 08/23/18 08/24/18 08/25/18 06:59 06:59 06:59 Intake Total 260 1940 1800 Output Total 8800 655 7727 Balance -1270 1100 240 Result Diagrams: 08/25/18 05:01 08/25/18 05:01 Additional Labs: Accuchecks 08/23/18 17:28 POC Glucose 120 H Microbiology 08/23/18 16:45 Urine voided Urine Culture - Preliminary NO GROWTH AT 24 HOURS 08/23/18 15:30 Lumbar Body Fluid Culture - Preliminary 08/23/18 15:10 Venous blood - Right Arm Blood Culture - Preliminary Specimen has been received and culture in progress. No Growth to date. 08/23/18 15:04 Venous blood - Left Arm Blood Culture - Preliminary Specimen has been received and culture in progress. No Growth to date. EKG Reviewed by me: Yes (Tele SR) Phys Exam - Physical Examination Constitutional: NAD Neck: no JVD no neck stiffness Respiratory: no wheezing, no rhonchi Cardiovascular: RRR, no rub Gastrointestinal: soft, non-tender, positive bowel sounds Musculoskeletal: no edema Neurological: moves all 4 limbs Dx/Plan (1) Meningitis Code(s): G03.9 - MENINGITIS, UNSPECIFIED Status: Suspected (2) Sepsis with acute organ dysfunction Code(s): A41.9 - SEPSIS, UNSPECIFIED ORGANISM; R65.20 - SEVERE SEPSIS WITHOUT SEPTIC SHOCK Status: Acute Comment: prob due to #1 (3) HLD (hyperlipidemia) Code(s): E78.5 - HYPERLIPIDEMIA, UNSPECIFIED Status: Chronic (4) HTN (hypertension) Code(s): I10 - ESSENTIAL (PRIMARY) HYPERTENSION Status: Chronic (5) GERD (gastroesophageal reflux disease) Code(s): K21.9 - GASTRO-ESOPHAGEAL REFLUX DISEASE WITHOUT ESOPHAGITIS Status: Chronic (6) Depression Code(s): F32.9 - MAJOR DEPRESSIVE DISORDER, SINGLE EPISODE, UNSPECIFIED Status : Chronic - Plan continue antibiotics, DVT proph w/SCDs Cultures negative -: Reduce IVF rate -: AM labs Review of Systems - Review of Systems Respiratory: negative: Cough, Dry, Shortness of Breath, Hemoptysis, SOB with Excertion, Pleuritic Pain, Sputum, Wheezing Cardiovascular: negative: chest pain, palpitations, orthopnea, paroxysmal nocturnal dyspnea, edema, light headedness, other - Medications/Allergies Allergies/Adverse Reactions: Allergies Allergy/AdvReac Type Severity Reaction Status Date / Time hydrocodone [Hydrocodone] Allergy Verified 07/28/18 12:06 Sulfa (Sulfonamide Allergy Verified 07/28/18 12:06 Antibiotics) Medications: Current Medications Acetaminophen (Tylenol) 650 mg PO Q4H PRN PRN Reason: Headache/Fever/Mild Pain (1-3) Hydrocodone Bitart/Acetaminophen ([place] 10/325) 1 tab PO Q4H PRN PRN Reason: PAIN (1-3) Hydrocodone Bitart/Acetaminophen ([place] 10/325) 2 tab PO Q4H PRN PRN Reason: PAIN (4-6) Last Admin: 08/24/18 19:59 Dose: 2 tab Al Hydroxide/Mg Hydroxide (Maalox) 30 ml PO Q4H PRN PRN Reason: Heartburn or Indigestion Ascorbic Acid (Vitamin C) 1,000 mg PO DAILY [facility] Last Admin: 08/24/18 09:30 Dose: 1,000 mg Atorvastatin Calcium (Lipitor) 20 mg PO HS [facility] Last Admin: 08/24/18 20:00 Dose: 20 mg Cholecalciferol (Vitamin D3) 1,000 units PO DAILY [facility] Last Admin: 08/24/18 09:30 Dose: 1,000 units Escitalopram Oxalate (Lexapro) 20 mg PO DAILY [facility] Last Admin: 08/24/18 09:31 Dose: 20 mg Folic Acid (Folvite) 0.5 mg PO DAILY [facility] Last Admin: 08/24/18 09:30 Dose: 0.5 mg Meropenem 2 gm/ Miscellaneous Medication 1 each/ Sodium Chloride 100 mls @ 0 mls/hr IVPB Q8HR [facility] Last Admin: 08/24/18 21:49 Dose: 100 mls Vancomycin HCl 1.25 gm/ Sodium (Chloride) 250 mls @ 166.667 mls/hr IVPB 0500, 1700 [facility] Last Admin: 08/24/18 16:59 Dose: 250 mls Potassium Chloride/Dextrose/Sod Cl (D5 1/2 Ns W/20 Meq Kcl) 1,000 mls @ 120 mls /hr IV .Q8H20M [facility] Last Admin: 08/24/18 15:08 Dose: 1,000 mls Iron/Minerals/Multivitamins (Theragran M) 1 tab PO DAILY [facility] Last Admin: 08/24/18 09:31 Dose: 1 tab Magnesium Hydroxide (Milk Of Magnesium) 30 ml PO Q12H PRN PRN Reason: Constipation Miscellaneous Medication (Pharmacy To Dose) 1 each IVPB PRN PRN PRN Reason: Pharmacy to dose Morphine Sulfate (Morphine) 4 mg SLOW IVP Q1H PRN PRN Reason: SEVERE BREAKTHROUGH PAIN Last Admin: 08/22/18 08:34 Dose: 4 mg Morphine Sulfate (Morphine) 2 mg SLOW IVP Q1H PRN PRN Reason: Moderate Breakthrough Pain Last Admin: 08/24/18 17:00 Dose: 2 mg Ondansetron HCl (Zofran) 4 mg IM Q8H PRN PRN Reason: Nausea/Vomiting Last Admin: 08/23/18 10:07 Dose: 4 mg Pantoprazole Sodium (Protonix) 40 mg PO DAILY [facility] Last Admin: 08/24/18 09:30 Dose: 40 mg Promethazine HCl (Phenergan) 12.5 mg IM Q4H PRN PRN Reason: Nausea/Vomiting Promethazine HCl (Phenergan) 12.5 mg PO Q4H PRN PRN Reason: Nausea/Vomiting Promethazine HCl (Phenergan Suppository) 12.5 mg [place] Q4H PRN PRN Reason: Nausea/Vomiting Saccharomyces Boulardii (Florastor) 250 mg PO DAILY [facility] Last Admin: 08/24/18 09:30 Dose: 250 mg Senna/Docusate Sodium (Senokot S) 2 tab PO BID [facility] Last Admin: 08/24/18 20:00 Dose: 2 tab Sodium Chloride (Flush - Normal Saline) 10 ml IVF Q12HR [facility] Last Admin: 08/24/18 20:02 Dose: 10 ml Sodium Chloride (Flush - Normal Saline) 10 ml IVF PRN PRN PRN Reason: Saline Flush Last Admin: 08/23/18 00:24 Dose: 10 ml Tizanidine HCl (Zanaflex) 4 mg PO Q6H PRN PRN Reason: MUSCLE SPASM Tramadol HCl (Ultram) 50 mg PO Q6H PRN PRN Reason: PAIN (1-3) Tramadol HCl (Ultram) 100 mg PO Q6H PRN PRN Reason: PAIN (4-6)
[2018-08-25] MEDS: D5 1/2 NS w/20 mEq KCL 1,000 ML IV SCH ×4 (03:58→20:06)
[2018-08-25] MEDS: Vancomycin HCl 1.25 GM in Sodium Chloride 0.9% 250 ML 250 ML IVPB SCH ×2 (04:05→17:11)
[2018-08-25] MEDS: HYDROcodone/Acetaminophen 10/325 mg Tablet PO PRN ×3 (05:02→15:59)
[2018-08-25 05:40] LABS: #Basophils 0.1 thou/uL (0.0-0.2); #Eosinphils 0.3 thou/uL (0.0-0.7); #Lymphocytes 3.1 thou/uL (1.20-3.40); #Monocytes 1.5 thou/uL (0.11-0.59); #Neutrophils 8.2 thou/uL (1.40-6.50); %Basophils 0.7 % (0.0-1.0); %Eosinophils 2.5 % (0.0-10.0); %Lymphocytes 23.5 % (21.0-51.0); %Monocytes 11.2 % (0.0-10.0); %Neutrophils 62.1 % (42.0-75.0); Hemoglobin 11.4 g/dL (12.0-16.0); Mean Corpuscular HGB CONC 33.2 g/dL (32.0-36.0); Mean Corpuscular Hemoglobin 33.2 pg (27.0-31.0); Mean Corpuscular Volume 99.8 fL (78.0-98.0); Mean Platelet Volume 7.8 fL (7.4-10.4); Platelet Count 315 thou/uL (130-400); RBC Distribution Width 11.1 % (11.5-14.5); Red Blood Cell (RBC) Count 3.42 mill/uL (4.20-5.40); White Blood Cell (WBC) Count 13.1 thou/uL (4.8-10.8)
[2018-08-25 05:56] LABS: ALT (SGPT) 12 U/L (8-55); AST (SGOT) 24 U/L (5-34); Albumin 3.4 g/dL (3.4-4.8); Alkaline Phosphatase 66 U/L (40-150); Anion Gap 12 mmol/L (10-20); BUN (Urea Nitrogen) 4 mg/dL (9.8-20.1); Bilirubin, Total 0.4 mg/dL (0.2-1.2); Calc. Creatinine Clearance 90 mL/min (70-130); Calcium 8.7 mg/dL (7.8-10.44); Carbon Dioxide 26 mmol/L (23-31); Chloride 105 mmol/L (98-107); Estimated GFR-MDRD Greater than 90; Globulin 2.7 g/dL (2.4-3.5); Glucose 95 mg/dL (83-110); Potassium 3.7 mmol/L (3.5-5.1); Protein, Total 6.1 g/dL (6.0-8.3); Sodium 139 mmol/L (136-145)
[2018-08-25] MEDS: Meropenem 2 GM, Admixture Fee 1 EACH in Sodium Chloride 0.9% 100 ML IVPB SCH ×3 (06:00→22:01)
[2018-08-25] MEDS: Folic Acid 1 MG TAB PO SCH (08:32)
[2018-08-25] MEDS: Ascorbic Acid 500 mg Chewable Tablet PO SCH (08:32)
[2018-08-25] MEDS: Escitalopram Oxalate 20 mg Tablet PO SCH (08:32)
[2018-08-25] MEDS: Multivitamin W/ Minerals 1 TAB PO SCH (08:33)
[2018-08-25] MEDS: Saccharomyces boulardii 250 MG CAP PO SCH (08:33)
[2018-08-25] MEDS: Senokot S 8.6-50 MG TAB PO SCH ×2 (08:34→20:07)
--- NOTE | 2018-08-25 15:15 | PRG ---
DATE OF SERVICE: 08/25/2018 SUBJECTIVE: Ms. James is feeling well and clinically stable overall. She has not had recurrent fever. Lumbar drain continues to be functional. Microbiology has not shown any organisms. IMPRESSION/PLAN: 1. From the perspective of her wound in her lumbar drain, this strategy seems to be working and keeping the wound dry and flat and we will continue with lumbar drainage until Tuesday when we will remove the lumbar drain. 2. From the perspective of possible meningitis, I agreed with the broad-spectrum antibiotics and to treat empirically as though she had meningitis given the inflammatory findings in the CSF. I appreciate the excellent care of the hospitalist service and Dr. Castellon from this regard. Job ID: [id number]
[2018-08-25] MEDS: Atorvastatin Calcium 20 MG TAB PO SCH (20:06)
--- NOTE | 2018-08-25 20:51 | PDOC.PN ---
- Subjective Encounter Start Date: 08/25/18 Encounter Start Time: 10:30 Patient seen and examined for med mngt. Feels gen weak. No new complaints. No overnight events - Objective MAR Reviewed: Yes Vital Signs & Weight: Vital Signs (12 hours) Temp Pulse Resp BP Pulse Ox 08/25/18 19:29 99.6 F 71 17 151/73 H 94 L 08/25/18 16:00 99.0 F 75 144/57 H 97 08/25/18 12:00 98.5 F 69 20 167/72 H 98 Weight Weight 150 lb 4.8 oz I&O: 08/24/18 08/25/18 08/26/18 06:59 06:59 06:59 Intake Total 1940 3550 1688 Output Total 840 2990 2352 Balance 1100 560 -664 Result Diagrams: 08/25/18 05:01 08/25/18 05:01 Phys Exam - Physical Examination Constitutional: NAD Respiratory: no wheezing, no rhonchi Cardiovascular: RRR, no rub Gastrointestinal: soft, non-tender, positive bowel sounds Musculoskeletal: no edema Neurological: moves all 4 limbs Dx/Plan (1) Meningitis Code(s): G03.9 - MENINGITIS, UNSPECIFIED Status: Suspected (2) Sepsis with acute organ dysfunction Code(s): A41.9 - SEPSIS, UNSPECIFIED ORGANISM; R65.20 - SEVERE SEPSIS WITHOUT SEPTIC SHOCK Status: Acute Comment: prob due to #1 (3) HLD (hyperlipidemia) Code(s): E78.5 - HYPERLIPIDEMIA, UNSPECIFIED Status: Chronic (4) HTN (hypertension) Code(s): I10 - ESSENTIAL (PRIMARY) HYPERTENSION Status: Chronic (5) GERD (gastroesophageal reflux disease) Code(s): K21.9 - GASTRO-ESOPHAGEAL REFLUX DISEASE WITHOUT ESOPHAGITIS Status: Chronic (6) Depression Code(s): F32.9 - MAJOR DEPRESSIVE DISORDER, SINGLE EPISODE, UNSPECIFIED Status : Chronic - Plan DVT proph w/SCDs Cont current Atbx -: Cont Lipitor/Protonix -: Cont other meds as below Review of Systems - Review of Systems Respiratory: negative: Cough, Dry, Shortness of Breath, Hemoptysis, SOB with Excertion, Pleuritic Pain, Sputum, Wheezing Cardiovascular: negative: chest pain, palpitations, orthopnea, paroxysmal nocturnal dyspnea, edema, light headedness, other - Medications/Allergies Allergies/Adverse Reactions: Allergies Allergy/AdvReac Type Severity Reaction Status Date / Time hydrocodone [Hydrocodone] Allergy Verified 07/28/18 12:06 Sulfa (Sulfonamide Allergy Verified 07/28/18 12:06 Antibiotics) Medications: Current Medications Acetaminophen (Tylenol) 650 mg PO Q4H PRN PRN Reason: Headache/Fever/Mild Pain (1-3) Hydrocodone Bitart/Acetaminophen ([place] 10/325) 1 tab PO Q4H PRN PRN Reason: PAIN (1-3) Hydrocodone Bitart/Acetaminophen ([place] 10/325) 2 tab PO Q4H PRN PRN Reason: PAIN (4-6) Last Admin: 08/25/18 15:59 Dose: 2 tab Al Hydroxide/Mg Hydroxide (Maalox) 30 ml PO Q4H PRN PRN Reason: Heartburn or Indigestion Ascorbic Acid (Vitamin C) 1,000 mg PO DAILY [facility] Last Admin: 08/25/18 08:32 Dose: 1,000 mg Atorvastatin Calcium (Lipitor) 20 mg PO HS [facility] Last Admin: 08/25/18 20:06 Dose: 20 mg Cholecalciferol (Vitamin D3) 1,000 units PO DAILY [facility] Last Admin: 08/25/18 08:32 Dose: 1,000 units Escitalopram Oxalate (Lexapro) 20 mg PO DAILY [facility] Last Admin: 08/25/18 08:32 Dose: 20 mg Folic Acid (Folvite) 0.5 mg PO DAILY [facility] Last Admin: 08/25/18 08:32 Dose: 0.5 mg Meropenem 2 gm/ Miscellaneous Medication 1 each/ Sodium Chloride 100 mls @ 0 mls/hr IVPB Q8HR [facility] Last Admin: 08/25/18 14:19 Dose: 100 mls Potassium Chloride/Dextrose/Sod Cl (D5 1/2 Ns W/20 Meq Kcl) 1,000 mls @ 70 mls/ hr IV .[id number] [facility] Last Admin: 08/25/18 20:06 Dose: 1,000 mls Vancomycin HCl 1.5 gm/ Sodium (Chloride) 300 mls @ 200 mls/hr IVPB 0500,1700 [facility] Iron/Minerals/Multivitamins (Theragran M) 1 tab PO DAILY [facility] Last Admin: 08/25/18 08:33 Dose: 1 tab Magnesium Hydroxide (Milk Of Magnesium) 30 ml PO Q12H PRN PRN Reason: Constipation Miscellaneous Medication (Pharmacy To Dose) 1 each IVPB PRN PRN PRN Reason: Pharmacy to dose Morphine Sulfate (Morphine) 4 mg SLOW IVP Q1H PRN PRN Reason: SEVERE BREAKTHROUGH PAIN Last Admin: 08/22/18 08:34 Dose: 4 mg Morphine Sulfate (Morphine) 2 mg SLOW IVP Q1H PRN PRN Reason: Moderate Breakthrough Pain Last Admin: 08/24/18 17:00 Dose: 2 mg Ondansetron HCl (Zofran) 4 mg IM Q8H PRN PRN Reason: Nausea/Vomiting Last Admin: 08/23/18 10:07 Dose: 4 mg Pantoprazole Sodium (Protonix) 40 mg PO DAILY [facility] Last Admin: 08/25/18 08:33 Dose: 40 mg Promethazine HCl (Phenergan) 12.5 mg IM Q4H PRN PRN Reason: Nausea/Vomiting Promethazine HCl (Phenergan) 12.5 mg PO Q4H PRN PRN Reason: Nausea/Vomiting Promethazine HCl (Phenergan Suppository) 12.5 mg [place] Q4H PRN PRN Reason: Nausea/Vomiting Saccharomyces Boulardii (Florastor) 250 mg PO DAILY [facility] Last Admin: 08/25/18 08:33 Dose: 250 mg Senna/Docusate Sodium (Senokot S) 2 tab PO BID [facility] Last Admin: 08/25/18 20:07 Dose: Not Given Sodium Chloride (Flush - Normal Saline) 10 ml IVF Q12HR [facility] Last Admin: 08/25/18 20:06 Dose: 10 ml Sodium Chloride (Flush - Normal Saline) 10 ml IVF PRN PRN PRN Reason: Saline Flush Last Admin: 08/23/18 00:24 Dose: 10 ml Tizanidine HCl (Zanaflex) 4 mg PO Q6H PRN PRN Reason: MUSCLE SPASM Tramadol HCl (Ultram) 50 mg PO Q6H PRN PRN Reason: PAIN (1-3) Tramadol HCl (Ultram) 100 mg PO Q6H PRN PRN Reason: PAIN (4-6)
[2018-08-25] MEDS: Morphine 4 MG/ML VIAL SLOW IVP PRN (21:26)
[2018-08-26] MEDS: HYDROcodone/Acetaminophen 10/325 mg Tablet PO PRN ×3 (02:26→16:03)
[2018-08-26] MEDS: Meropenem 2 GM, Admixture Fee 1 EACH in Sodium Chloride 0.9% 100 ML IVPB SCH ×3 (05:26→22:33)
[2018-08-26] MEDS: Vancomycin HCl 1.5 GM in Sodium Chloride 0.9% 250 ML 300 ML IVPB SCH ×2 (06:22→18:01)
[2018-08-26 09:34] LABS: #Basophils 0.1 thou/uL (0.0-0.2); #Eosinphils 0.2 thou/uL (0.0-0.7); #Lymphocytes 2.6 thou/uL (1.20-3.40); #Monocytes 1.5 thou/uL (0.11-0.59); #Neutrophils 8.5 thou/uL (1.40-6.50); %Basophils 0.5 % (0.0-1.0); %Eosinophils 1.4 % (0.0-10.0); %Lymphocytes 20.3 % (21.0-51.0); %Monocytes 11.8 % (0.0-10.0); Hemoglobin 12.3 g/dL (12.0-16.0); Mean Corpuscular HGB CONC 32.8 g/dL (32.0-36.0); Mean Corpuscular Hemoglobin 33.1 pg (27.0-31.0); Mean Platelet Volume 7.8 fL (7.4-10.4); Platelet Count 339 thou/uL (130-400); RBC Distribution Width 11.2 % (11.5-14.5); Red Blood Cell (RBC) Count 3.73 mill/uL (4.20-5.40); White Blood Cell (WBC) Count 12.9 thou/uL (4.8-10.8)
[2018-08-26 09:55] LABS: Anion Gap 15 mmol/L (10-20); BUN (Urea Nitrogen) 5 mg/dL (9.8-20.1); Calc. Creatinine Clearance 90 mL/min (70-130); Calcium 9.1 mg/dL (7.8-10.44); Carbon Dioxide 22 mmol/L (23-31); Chloride 105 mmol/L (98-107); Estimated GFR-MDRD Greater than 90; Glucose 101 mg/dL (83-110); Potassium 3.6 mmol/L (3.5-5.1); Sodium 138 mmol/L (136-145)
[2018-08-26] MEDS: Saccharomyces boulardii 250 MG CAP PO SCH (10:17)
[2018-08-26] MEDS: Ascorbic Acid 500 mg Chewable Tablet PO SCH (10:17)
[2018-08-26] MEDS: Folic Acid 1 MG TAB PO SCH (10:18)
[2018-08-26] MEDS: Escitalopram Oxalate 20 mg Tablet PO SCH (10:18)
[2018-08-26] MEDS: Multivitamin W/ Minerals 1 TAB PO SCH (10:18)
[2018-08-26] MEDS: Senokot S 8.6-50 MG TAB PO SCH ×2 (10:18→20:25)
[2018-08-26] MEDS: D5 1/2 NS w/20 mEq KCL 1,000 ML IV SCH (10:19)
--- NOTE | 2018-08-26 10:33 | PRG ---
DATE OF SERVICE: NEUROSURGERY PROGRESS NOTE I saw Ms. James in the Intermediate Care Unit this morning. She is resting comfortably. Has been slightly bored and having headache and when she gets up to walk to the bathroom, she feels fine. CSF leak is well controlled through the drain and 20 mL have been removed every other hour. Her T-max was 100.4. Other vital signs are stable. I do not find any new neurological deficit. We will continue draining CSF over the weekend, and hopefully, the drain can be weaned, clamped, and removed in the coming week. Job ID: [id number]
--- NOTE | 2018-08-26 11:49 | ULT ---
LEFT UPPER EXTREMITY VENOUS DOPPLER: DATE: 08/26/2018. PROVIDED CLINICAL HISTORY: Left upper extremity swelling. FINDINGS: Price scale and color Doppler sonography with spectral analysis was performed of the left internal jug ular, subclavian, axillary, brachia, basilic, cephalic, radial, and ulnar veins, demonstrating a norm al sonographic appearance to each. IMPRESSION: No sonographic evidence for left upper extremity deep venous thrombosis. POS: JOHN
[2018-08-26] MEDS: Atorvastatin Calcium 20 MG TAB PO SCH (20:25)
--- NOTE | 2018-08-26 23:25 | PDOC.PN ---
- Subjective Encounter Start Date: 08/26/18 Encounter Start Time: 09:00 Patient seen and examined for med mngt. LUE swelling with pain x 1 day. No fever /chills. SIDHU better. No new focal deficits. No new complaints. No overnight events - Objective MAR Reviewed: Yes Vital Signs & Weight: Vital Signs (12 hours) Temp Pulse Resp BP Pulse Ox 08/26/18 19:58 99.2 F 69 18 142/75 H 93 L Weight Weight 150 lb 4.8 oz I&O: 08/25/18 08/26/18 08/27/18 06:59 06:59 06:59 Intake Total 3550 1688 1989 Output Total 2990 3202 1970 Balance 560 -224 20 Result Diagrams: 08/27/18 04:36 08/27/18 04:36 Phys Exam - Physical Examination Constitutional: NAD Respiratory: no wheezing, no rhonchi Cardiovascular: RRR, no rub Gastrointestinal: soft, non-tender, positive bowel sounds Musculoskeletal: no edema Neurological: moves all 4 limbs Dx/Plan (1) Meningitis Code(s): G03.9 - MENINGITIS, UNSPECIFIED Status: Suspected (2) Sepsis with acute organ dysfunction Code(s): A41.9 - SEPSIS, UNSPECIFIED ORGANISM; R65.20 - SEVERE SEPSIS WITHOUT SEPTIC SHOCK Status: Acute Comment: prob due to #1 (3) HLD (hyperlipidemia) Code(s): E78.5 - HYPERLIPIDEMIA, UNSPECIFIED Status: Chronic (4) HTN (hypertension) Code(s): I10 - ESSENTIAL (PRIMARY) HYPERTENSION Status: Chronic (5) GERD (gastroesophageal reflux disease) Code(s): K21.9 - GASTRO-ESOPHAGEAL REFLUX DISEASE WITHOUT ESOPHAGITIS Status: Chronic (6) Depression Code(s): F32.9 - MAJOR DEPRESSIVE DISORDER, SINGLE EPISODE, UNSPECIFIED Status : Chronic - Plan continue antibiotics (per ID), DVT proph w/SCDs Cont current meds -: LUE doppler - negative for DVT -: Will follow PRN -: Will confirm Atbx with Dr Castellon as dc. Review of Systems - Review of Systems Respiratory: negative: Cough, Dry, Shortness of Breath, Hemoptysis, SOB with Excertion, Pleuritic Pain, Sputum, Wheezing Cardiovascular: negative: chest pain, palpitations, orthopnea, paroxysmal nocturnal dyspnea, edema, light headedness, other - Medications/Allergies Allergies/Adverse Reactions: Allergies Allergy/AdvReac Type Severity Reaction Status Date / Time hydrocodone [Hydrocodone] Allergy Verified 07/28/18 12:06 Sulfa (Sulfonamide Allergy Verified 07/28/18 12:06 Antibiotics) Medications: Current Medications Acetaminophen (Tylenol) 650 mg PO Q4H PRN PRN Reason: Headache/Fever/Mild Pain (1-3) Hydrocodone Bitart/Acetaminophen ([place] 10/325) 1 tab PO Q4H PRN PRN Reason: PAIN (1-3) Last Admin: 08/26/18 11:58 Dose: 1 tab Hydrocodone Bitart/Acetaminophen ([place] 10/325) 2 tab PO Q4H PRN PRN Reason: PAIN (4-6) Last Admin: 08/26/18 16:03 Dose: 2 tab Al Hydroxide/Mg Hydroxide (Maalox) 30 ml PO Q4H PRN PRN Reason: Heartburn or Indigestion Ascorbic Acid (Vitamin C) 1,000 mg PO DAILY [facility] Last Admin: 08/26/18 10:17 Dose: 1,000 mg Atorvastatin Calcium (Lipitor) 20 mg PO [facility] Last Admin: 08/26/18 20:25 Dose: 20 mg Cholecalciferol (Vitamin D3) 1,000 units PO DAILY [facility] Last Admin: 08/26/18 10:18 Dose: 1,000 units Escitalopram Oxalate (Lexapro) 20 mg PO DAILY [facility] Last Admin: 08/26/18 10:18 Dose: 20 mg Folic Acid (Folvite) 0.5 mg PO DAILY [facility] Last Admin: 08/26/18 10:18 Dose: 0.5 mg Meropenem 2 gm/ Miscellaneous Medication 1 each/ Sodium Chloride 100 mls @ 0 mls/hr IVPB Q8HR [facility] Last Admin: 08/26/18 22:33 Dose: 100 mls Vancomycin HCl 1.5 gm/ Sodium (Chloride) 300 mls @ 200 mls/hr IVPB 0500,1700 [facility] Last Admin: 08/26/18 18:01 Dose: 300 mls Potassium Chloride/Dextrose/Sod Cl (D5 1/2 Ns W/20 Meq Kcl) 1,000 mls @ 50 mls/ hr IV .Q20H [facility] Last Admin: 08/26/18 10:19 Dose: Not Given Iron/Minerals/Multivitamins (Theragran M) 1 tab PO DAILY [facility] Last Admin: 08/26/18 10:18 Dose: 1 tab Magnesium Hydroxide (Milk Of Magnesium) 30 ml PO Q12H PRN PRN Reason: Constipation Miscellaneous Medication (Pharmacy To Dose) 1 each IVPB PRN PRN PRN Reason: Pharmacy to dose Morphine Sulfate (Morphine) 4 mg SLOW IVP Q1H PRN PRN Reason: SEVERE BREAKTHROUGH PAIN Last Admin: 08/25/18 21:26 Dose: 4 mg Morphine Sulfate (Morphine) 2 mg SLOW IVP Q1H PRN PRN Reason: Moderate Breakthrough Pain Last Admin: 08/24/18 17:00 Dose: 2 mg Ondansetron HCl (Zofran) 4 mg IM Q8H PRN PRN Reason: Nausea/Vomiting Last Admin: 08/23/18 10:07 Dose: 4 mg Pantoprazole Sodium (Protonix) 40 mg PO DAILY [facility] Last Admin: 08/26/18 10:18 Dose: 40 mg Promethazine HCl (Phenergan) 12.5 mg IM Q4H PRN PRN Reason: Nausea/Vomiting Promethazine HCl (Phenergan) 12.5 mg PO Q4H PRN PRN Reason: Nausea/Vomiting Promethazine HCl (Phenergan Suppository) 12.[address] Q4H PRN PRN Reason: Nausea/Vomiting Saccharomyces Boulardii (Florastor) 250 mg PO DAILY [facility] Last Admin: 08/26/18 10:17 Dose: 250 mg Senna/Docusate Sodium (Senokot S) 2 tab PO BID [facility] Last Admin: 08/26/18 20:25 Dose: 2 tab Sodium Chloride (Flush - Normal Saline) 10 ml IVF Q12HR [facility] Last Admin: 08/26/18 20:26 Dose: 10 ml Sodium Chloride (Flush - Normal Saline) 10 ml IVF PRN PRN PRN Reason: Saline Flush Last Admin: 08/23/18 00:24 Dose: 10 ml Tizanidine HCl (Zanaflex) 4 mg PO Q6H PRN PRN Reason: MUSCLE SPASM Tramadol HCl (Ultram) 50 mg PO Q6H PRN PRN Reason: PAIN (1-3) Tramadol HCl (Ultram) 100 mg PO Q6H PRN PRN Reason: PAIN (4-6)
[2018-08-27] MEDS: HYDROcodone/Acetaminophen 10/325 mg Tablet PO PRN ×2 (05:15→20:12)
[2018-08-27] MEDS: Meropenem 2 GM, Admixture Fee 1 EACH in Sodium Chloride 0.9% 100 ML IVPB SCH ×3 (05:16→22:45)
[2018-08-27 05:38] LABS: Vancomycin, Trough 24.1 ug/mL
[2018-08-27 05:39] LABS: Anion Gap 11 mmol/L (10-20); BUN (Urea Nitrogen) 6 mg/dL (9.8-20.1); Calc. Creatinine Clearance 93 mL/min (70-130); Calcium 8.6 mg/dL (7.8-10.44); Carbon Dioxide 27 mmol/L (23-31); Chloride 102 mmol/L (98-107); Estimated GFR-MDRD Greater than 90; Glucose 97 mg/dL (83-110); Potassium 3.2 mmol/L (3.5-5.1); Sodium 137 mmol/L (136-145)
[2018-08-27 05:58] LABS: #Basophils 0.1 thou/uL (0.0-0.2); #Eosinphils 0.2 thou/uL (0.0-0.7); #Lymphocytes 2.1 thou/uL (1.20-3.40); #Monocytes 1.1 thou/uL (0.11-0.59); %Basophils 0.5 % (0.0-1.0); %Eosinophils 1.9 % (0.0-10.0); %Lymphocytes 18.6 % (21.0-51.0); %Monocytes 9.1 % (0.0-10.0); %Neutrophils 69.9 % (42.0-75.0); Hemoglobin 11.5 g/dL (12.0-16.0); Mean Corpuscular HGB CONC 33.7 g/dL (32.0-36.0); Mean Corpuscular Volume 98.2 fL (78.0-98.0); Mean Platelet Volume 7.9 fL (7.4-10.4); Platelet Count 375 thou/uL (130-400); RBC Distribution Width 11.1 % (11.5-14.5); Red Blood Cell (RBC) Count 3.47 mill/uL (4.20-5.40); White Blood Cell (WBC) Count 11.5 thou/uL (4.8-10.8)
[2018-08-27] MEDS: Vancomycin HCl 1.5 GM in Sodium Chloride 0.9% 250 ML 300 ML IVPB SCH ×2 (06:09→16:37)
[2018-08-27] MEDS: D5 1/2 NS w/20 mEq KCL 1,000 ML IV SCH (06:17)
[2018-08-27] MEDS: Escitalopram Oxalate 20 mg Tablet PO SCH (08:47)
[2018-08-27] MEDS: Folic Acid 1 MG TAB PO SCH (08:47)
[2018-08-27] MEDS: Senokot S 8.6-50 MG TAB PO SCH ×2 (08:47→20:12)
[2018-08-27] MEDS: Saccharomyces boulardii 250 MG CAP PO SCH (08:47)
[2018-08-27] MEDS: Multivitamin W/ Minerals 1 TAB PO SCH (08:48)
[2018-08-27] MEDS: Ascorbic Acid 500 mg Chewable Tablet PO SCH (08:48)
--- NOTE | 2018-08-27 09:30 | PRG ---
DATE OF SERVICE: 08/27/2018 NEUROSURGERY PROGRESS NOTE I saw Ms. James in our Intermediate Care room this morning. She has no complaints other than general fatigue. The T-max yesterday was 100.4 degrees Fahrenheit. Other vital signs have been stable. Her neurological examination is quite reassuring. There is good function in the lower extremities. Her lumbar drain seems to be working well. The plan is to continue lumbar drainage today. She remains on vancomycin for the drains. She has a significant fever today. We will start a workup for that, but for now, we are going to hold off. Job ID: [id number]
[2018-08-27] MEDS: Atorvastatin Calcium 20 MG TAB PO SCH (20:12)
[2018-08-28] MEDS: D5 1/2 NS w/20 mEq KCL 1,000 ML IV SCH ×2 (02:16→19:32)
[2018-08-28 05:06] LABS: #Basophils 0.1 thou/uL (0.0-0.2); #Eosinphils 0.2 thou/uL (0.0-0.7); #Lymphocytes 2.4 thou/uL (1.20-3.40); #Monocytes 1.3 thou/uL (0.11-0.59); #Neutrophils 9.4 thou/uL (1.40-6.50); %Basophils 0.5 % (0.0-1.0); %Eosinophils 1.3 % (0.0-10.0); %Lymphocytes 18.2 % (21.0-51.0); %Monocytes 9.7 % (0.0-10.0); %Neutrophils 70.3 % (42.0-75.0); Hemoglobin 11.2 g/dL (12.0-16.0); Mean Corpuscular HGB CONC 33.3 g/dL (32.0-36.0); Mean Corpuscular Hemoglobin 32.4 pg (27.0-31.0); Mean Corpuscular Volume 97.4 fL (78.0-98.0); Mean Platelet Volume 7.9 fL (7.4-10.4); Platelet Count 396 thou/uL (130-400); RBC Distribution Width 10.9 % (11.5-14.5); Red Blood Cell (RBC) Count 3.46 mill/uL (4.20-5.40); White Blood Cell (WBC) Count 13.4 thou/uL (4.8-10.8)
[2018-08-28] MEDS: Meropenem 2 GM, Admixture Fee 1 EACH in Sodium Chloride 0.9% 100 ML IVPB SCH ×3 (05:13→21:52)
[2018-08-28 05:33] LABS: Anion Gap 10 mmol/L (10-20); BUN (Urea Nitrogen) 7 mg/dL (9.8-20.1); Calc. Creatinine Clearance 87 mL/min (70-130); Calcium 8.6 mg/dL (7.8-10.44); Carbon Dioxide 27 mmol/L (23-31); Chloride 104 mmol/L (98-107); Estimated GFR-MDRD Greater than 90; Glucose 100 mg/dL (83-110); Magnesium 2.2 mg/dL (1.6-2.6); Potassium 3.3 mmol/L (3.5-5.1); Sodium 138 mmol/L (136-145)
[2018-08-28] MEDS: Vancomycin HCl 1.5 GM in Sodium Chloride 0.9% 250 ML 300 ML IVPB SCH ×2 (06:04→18:33)
[2018-08-28] MEDS: Multivitamin W/ Minerals 1 TAB PO SCH (09:47)
[2018-08-28] MEDS: Ascorbic Acid 500 mg Chewable Tablet PO SCH (09:47)
[2018-08-28] MEDS: Saccharomyces boulardii 250 MG CAP PO SCH (09:47)
[2018-08-28] MEDS: Escitalopram Oxalate 20 mg Tablet PO SCH (09:47)
[2018-08-28] MEDS: Folic Acid 1 MG TAB PO SCH (09:47)
[2018-08-28] MEDS: Senokot S 8.6-50 MG TAB PO SCH ×2 (09:48→21:43)
--- NOTE | 2018-08-28 10:40 | PDOC.PN ---
- Subjective Encounter Start Date: 08/28/18 Encounter Start Time: 10:39 Subjective: alert, no SIDHU, dizziness, neuro complaints - Objective MAR Reviewed: Yes Vital Signs & Weight: Vital Signs (12 hours) Temp Pulse Resp BP Pulse Ox 08/28/18 08:23 97 08/28/18 07:40 98.4 F 69 16 146/68 H 97 08/28/18 04:00 99.3 F 73 16 151/93 H 96 08/28/18 00:00 98.8 F 72 16 127/61 98 Weight Weight 150 lb 4.8 oz I&O: 08/27/18 08/28/18 08/29/18 06:59 06:59 06:59 Intake Total 3390 3030 Output Total 3390 1540 30 Balance 0 1490 -30 Result Diagrams: 08/28/18 03:56 08/28/18 03:56 Phys Exam - Physical Examination Neck: no JVD Respiratory: clear to auscultation bilateral Cardiovascular: RRR, no significant murmur Gastrointestinal: soft, positive bowel sounds Musculoskeletal: no edema Dx/Plan (1) Postoperative CSF leak Code(s): G97.82 - OTH POSTPROC COMPLICATIONS AND DISORDERS OF NERVOUS SYS Status: Acute (2) Sepsis with acute organ dysfunction Code(s): A41.9 - SEPSIS, UNSPECIFIED ORGANISM; R65.20 - SEVERE SEPSIS WITHOUT SEPTIC SHOCK Status: Acute Comment: prob due to #1 (3) GERD (gastroesophageal reflux disease) Code(s): K21.9 - GASTRO-ESOPHAGEAL REFLUX DISEASE WITHOUT ESOPHAGITIS Status: Chronic Qualifiers: Esophagitis presence: esophagitis presence not specified Qualified Code(s) : K21.9 - Gastro-esophageal reflux disease without esophagitis (4) HLD (hyperlipidemia) Code(s): E78.5 - HYPERLIPIDEMIA, UNSPECIFIED Status: Chronic Qualifiers: Hyperlipidemia type: unspecified Qualified Code(s): E78.5 - Hyperlipidemia , unspecified (5) HTN (hypertension) Code(s): I10 - ESSENTIAL (PRIMARY) HYPERTENSION Status: Chronic Qualifiers: Hypertension type: essential hypertension Qualified Code(s): I10 - Essential (primary) hypertension (6) Meningitis Code(s): G03.9 - MENINGITIS, UNSPECIFIED Status: Acute (7) S/P lumbar laminectomy Code(s): Z98.890 - OTHER SPECIFIED POSTPROCEDURAL STATES Status: Acute - Plan cont iv antibx -: discuss with NS and ID * .
[2018-08-28] MEDS: HYDROcodone/Acetaminophen 10/325 mg Tablet PO PRN (17:05)
[2018-08-28 17:39] LABS: Vancomycin, Trough 36.1 ug/mL
--- NOTE | 2018-08-28 18:36 | PRG ---
DATE OF SERVICE: 08/28/2018 SUBJECTIVE: The patient has been transferred to the floor. The lumbar drain was removed, but she still has a leak and it looks like she is going for exploration of the area to see if they can close the dural leak. She is feeling better and had no headaches for the past 48 hours. No respiratory symptoms, a little bit constipated, was given laxatives and now she has loose stool. No genitourinary symptoms. OBJECTIVE: VITAL SIGNS: T-max was 101 yesterday at 4:00 p.m. she has been afebrile since. Other vital signs are not remarkable. GENERAL: Awake, alert, oriented, pleasant. HEENT: Ocular movements conjugate. Pupils are equal and reactive. LUNGS: Clear. HEART: S1 and S2. Regular rate. ABDOMEN: Soft, not distended. LABORATORY DATA: White cell count 13.4, hemoglobin 11.2, platelets 396, 70% neutrophils. Sodium 138, creatinine 0.61. Cultures are negative of the sample submitted. Blood cultures negative as well. Urine culture negative. ASSESSMENT AND DISCUSSION: Cerebrospinal fluid leak with lumbar drain and then meningitis. Negative cultures, but likely one of the skin pathogen is involved, which were suppressed by antimicrobial therapy. Continue meropenem, vancomycin, exploration of the area for possible closure of the defect in the dura. Job ID: [id number]
[2018-08-28] MEDS: Atorvastatin Calcium 20 MG TAB PO SCH (21:52)
[2018-08-29] MEDS: Vancomycin HCl 1 GM in Premix Bag 1 BAG IVPB SCH ×2 (04:29→17:10)
[2018-08-29] MEDS ORDERED: Vancomycin HCl 1.25 GM in Sodium Chloride 0.9% 250 ML 250 ML IVPB SCH (05:00)
[2018-08-29] MEDS: Meropenem 2 GM, Admixture Fee 1 EACH in Sodium Chloride 0.9% 100 ML IVPB SCH ×3 (06:44→21:11)
[2018-08-29] MEDS: Ascorbic Acid 500 mg Chewable Tablet PO SCH (10:31)
[2018-08-29] MEDS: Escitalopram Oxalate 20 mg Tablet PO SCH (10:31)
[2018-08-29] MEDS: Multivitamin W/ Minerals 1 TAB PO SCH (10:32)
[2018-08-29] MEDS: Saccharomyces boulardii 250 MG CAP PO SCH (10:32)
[2018-08-29] MEDS: Folic Acid 1 MG TAB PO SCH (10:32)
[2018-08-29] MEDS: Senokot S 8.6-50 MG TAB PO SCH ×2 (10:32→20:04)
[2018-08-29] MEDS ORDERED: Sodium Chloride 0.9% 10 ML ONE (12:05)
[2018-08-29] MEDS ORDERED: Fentanyl 100 MCG/2 ML VIAL ONE ×5 (12:19→14:17)
[2018-08-29] MEDS ORDERED: HYDROmorphone 2 MG/ML VIAL ONE (13:50)
--- NOTE | 2018-08-29 14:01 | PRG ---
DATE OF SERVICE: 08/29/2018 SUBJECTIVE: Visit of Ms. James: After removal of the lumbar drain, she very rapidly began to develop some CSF drainage from the wound itself. It is leaking out of suture holes and I doubt that any further suture reinforcement will be successful. I am recommending re-exploration in an effort to stop the CSF leakage of the dural source. This may or may not be supplemented with lumbar drainage again. With respect to the possibility of infection, she will remain on broad-spectrum antibiotics and a PICC line is being planned. Discussed the indication, risks, benefits, alternatives of the procedure with the patient, who expressed understanding and wished to proceed. Job ID: [id number]
--- NOTE | 2018-08-29 15:30 | PDOC.PN ---
- Subjective Encounter Start Date: 08/29/18 Encounter Start Time: 15:28 Subjective: alert, no pain. post op - Objective MAR Reviewed: Yes Vital Signs & Weight: Vital Signs (12 hours) Temp Pulse Resp BP Pulse Ox 08/29/18 08:00 95 08/29/18 07:37 98.5 F 78 18 135/79 95 08/29/18 03:29 98.8 F 80 18 138/70 96 Weight Weight 150 lb 4.8 oz I&O: 08/28/18 08/29/18 08/30/18 06:59 06:59 06:59 Intake Total 3030 1940 Output Total 1540 30 Balance 1490 1910 Result Diagrams: 08/28/18 03:56 08/28/18 03:56 Phys Exam - Physical Examination Neck: no JVD Respiratory: clear to auscultation bilateral Cardiovascular: RRR, no significant murmur Gastrointestinal: soft, positive bowel sounds Musculoskeletal: no edema Dx/Plan (1) Postoperative CSF leak Code(s): G97.82 - OTH POSTPROC COMPLICATIONS AND DISORDERS OF NERVOUS SYS Status: Acute (2) Sepsis with acute organ dysfunction Code(s): A41.9 - SEPSIS, UNSPECIFIED ORGANISM; R65.20 - SEVERE SEPSIS WITHOUT SEPTIC SHOCK Status: Acute Comment: prob due to #1 (3) GERD (gastroesophageal reflux disease) Code(s): K21.9 - GASTRO-ESOPHAGEAL REFLUX DISEASE WITHOUT ESOPHAGITIS Status: Chronic Qualifiers: Esophagitis presence: esophagitis presence not specified Qualified Code(s) : K21.9 - Gastro-esophageal reflux disease without esophagitis (4) HLD (hyperlipidemia) Code(s): E78.5 - HYPERLIPIDEMIA, UNSPECIFIED Status: Chronic Qualifiers: Hyperlipidemia type: unspecified Qualified Code(s): E78.5 - Hyperlipidemia , unspecified (5) HTN (hypertension) Code(s): I10 - ESSENTIAL (PRIMARY) HYPERTENSION Status: Chronic Qualifiers: Hypertension type: essential hypertension Qualified Code(s): I10 - Essential (primary) hypertension (6) Meningitis Code(s): G03.9 - MENINGITIS, UNSPECIFIED Status: Acute (7) S/P lumbar laminectomy Code(s): Z98.890 - OTHER SPECIFIED POSTPROCEDURAL STATES Status: Acute - Plan postop- no CSF leak, has wound infection -: cont present antibx pending ID recommendations -: PICC line tomorrow * .
[2018-08-29] MEDS ORDERED: Ketorolac Tromethamine 30 MG/ML VIAL ONE (17:27)
[2018-08-29] MEDS ORDERED: ePHEDrine/0.9% NaCl/PF SYRINGE 50 mg/10 ml ONE (17:27)
[2018-08-29] MEDS ORDERED: Dexamethasone 20 MG/5 ML VIAL ONE (17:27)
[2018-08-29] MEDS ORDERED: Glycopyrrolate 0.2 MG/ML 5 ML SYRINGE ONE (17:27)
[2018-08-29] MEDS ORDERED: Lidocaine 1% PF 5 ML VIAL ONE (17:27)
[2018-08-29] MEDS ORDERED: Ondansetron PF 4 MG/2 ML Vial ONE (17:27)
[2018-08-29] MEDS ORDERED: PROPOFOL 200 MG/20 ML VIAL ONE (17:27)
[2018-08-29] MEDS: D5 1/2 NS w/20 mEq KCL 1,000 ML IV SCH ×2 (19:46→20:04)
--- NOTE | 2018-08-29 19:47 | PRG ---
DATE OF SERVICE: 08/29/2018 SUBJECTIVE: The patient had exploration of the lumbar wound and Dr. Farrar did not find any evidence of leak, only inflammatory changes. Cultures were submitted. She is feeling better now. She has no respiratory symptoms or abdominal pain. OBJECTIVE: VITAL SIGNS: Her vital signs are normal at this time. GENERAL: She is awake and oriented. LUNGS: Clear. HEART: S1 and S2. Regular rate. ABDOMEN: Soft. LABORATORY DATA: Microbiology is pending from the site. The Gram stain showed moderate wbc's, but no organisms seen and cultures are pending and she is currently on meropenem to be continued until we have hopefully some culture guidance to target for discharge planning. ASSESSMENT AND DISCUSSION: Laminectomy L5-S1 with CSF leak and then meningitis now. There is no evidence of leak after exploration, but there is some localized infection with cloudy fluid identified at the site. The patient is to continue on IV antimicrobials as determined in the case management orders with the same agent unless we have the ability of retrieving the culprit from the culture submitted today. Job ID: [id number]
[2018-08-29] MEDS: HYDROcodone/Acetaminophen 10/325 mg Tablet PO PRN (20:02)
[2018-08-29] MEDS: Atorvastatin Calcium 20 MG TAB PO SCH (20:02)
--- NOTE | 2018-08-29 20:55 | OP ---
DATE OF PROCEDURE: 08/29/2018 RELAY ENGINEER: Javed. PROCEDURE PERFORMED: Re-exploration of wound, closure of CSF leak. DESCRIPTION OF PROCEDURE: The patient was brought to the operating room and intubated. She was rolled in a prone position on gel flat chest rolls. The previous incision was reopened and we found anna purulent material expressed under some pressure. This was sampled for bacteriology and extensively evacuated. We debrided all necrotic tissue from the incision and surrounds and then washed the wound out with 1 L of bacitracin irrigation. We next explored the dura and did not identify any area of active CSF leak. We did several Valsalva maneuvers throughout the case, both at the beginning, middle, and end, and could not identify any active CSF leakage. We did lay DuraSeal over the dura to reinforce any healing CSF fistula. Next, the drain was left in place. Vancomycin powder was applied and the wound was closed in anatomic layers. Job ID: [id number]
[2018-08-30] MEDS: HYDROcodone/Acetaminophen 10/325 mg Tablet PO PRN ×3 (01:50→18:00)
[2018-08-30] MEDS: Vancomycin HCl 1 GM in Premix Bag 1 BAG IVPB SCH (05:59)
[2018-08-30] MEDS: Meropenem 2 GM, Admixture Fee 1 EACH in Sodium Chloride 0.9% 100 ML IVPB SCH ×4 (06:00→21:00)
[2018-08-30] MEDS: Multivitamin W/ Minerals 1 TAB PO SCH (10:43)
[2018-08-30] MEDS: Folic Acid 1 MG TAB PO SCH (10:44)
[2018-08-30] MEDS: Saccharomyces boulardii 250 MG CAP PO SCH (10:44)
[2018-08-30] MEDS: Senokot S 8.6-50 MG TAB PO SCH ×2 (10:45→20:47)
[2018-08-30] MEDS: Ascorbic Acid 500 mg Chewable Tablet PO SCH (10:45)
[2018-08-30] MEDS: Escitalopram Oxalate 20 mg Tablet PO SCH (10:45)
--- NOTE | 2018-08-30 11:26 | SPC ---
SONOGRAPHIC GUIDED RIGHT UPPER EXTREMITY PICC PLACEMENT: HISTORY: Osteomyelitis. FINDINGS: After explaining the procedure and answering all questions, the right upper extremity was prepped and draped in the usual sterile fashion. Sterile technique, buffered local anesthesia, sonographic guid ance, and a 22-gauge needle were used to carefully access the right basilic vein. Standard technique was then used to place the tip of a 5 [place] single-lumen PICC so that the tip lies at the level of the level of the right atrium. Catheter was flushed and secured externally. The patient tolerated t he procedure well and was returned in unchanged condition. IMPRESSION: Right upper extremity PICC is ready for use. POS: [facility]
[2018-08-30 14:36] LABS: #Lymphocytes 2.7 thou/uL (1.20-3.40); #Monocytes 1.3 thou/uL (0.11-0.59); #Neutrophils 12.3 thou/uL (1.40-6.50); %Basophils 0.1 % (0.0-1.0); %Eosinophils 0.3 % (0.0-10.0); %Lymphocytes 16.4 % (21.0-51.0); %Neutrophils 75.2 % (42.0-75.0); Mean Corpuscular HGB CONC 31.5 g/dL (32.0-36.0); Mean Corpuscular Hemoglobin 30.9 pg (27.0-31.0); Mean Corpuscular Volume 98.2 fL (78.0-98.0); Mean Platelet Volume 7.2 fL (7.4-10.4); Platelet Count 498 thou/uL (130-400); RBC Distribution Width 11.1 % (11.5-14.5); Red Blood Cell (RBC) Count 3.56 mill/uL (4.20-5.40); White Blood Cell (WBC) Count 16.4 thou/uL (4.8-10.8)
[2018-08-30 15:27] LABS: Anion Gap 13 mmol/L (10-20); BUN (Urea Nitrogen) 13 mg/dL (9.8-20.1); Calc. Creatinine Clearance 68 mL/min (70-130); Calcium 8.9 mg/dL (7.8-10.44); Carbon Dioxide 25 mmol/L (23-31); Chloride 103 mmol/L (98-107); Estimated GFR-MDRD 72; Glucose 100 mg/dL (83-110); Potassium 3.3 mmol/L (3.5-5.1); Sodium 138 mmol/L (136-145)
[2018-08-30 15:34] LABS: Vancomycin, Trough 38.9 ug/mL
--- NOTE | 2018-08-30 17:01 | PDOC.PN ---
- Subjective Encounter Start Date: 08/30/18 Encounter Start Time: 13:00 Patient seen and examined for med mngt. No new complaints. No overnight events - Objective MAR Reviewed: Yes Vital Signs & Weight: Vital Signs (12 hours) Temp Pulse Resp BP Pulse Ox 08/30/18 16:00 98.5 F 69 16 102/63 95 08/30/18 12:00 98.4 F 82 14 105/66 96 08/30/18 08:00 98.0 F 62 15 147/78 H 96 Weight Weight 150 lb 4.8 oz I&O: 08/29/18 08/30/18 08/31/18 06:59 06:59 06:59 Intake Total 1940 1380 550 Output Total 30 70 15 Balance 1910 1310 535 Result Diagrams: 08/30/18 14:25 08/30/18 14:25 Phys Exam - Physical Examination Constitutional: NAD Respiratory: no wheezing, no rhonchi Cardiovascular: RRR, no rub Gastrointestinal: soft, non-tender, positive bowel sounds Musculoskeletal: no edema Neurological: moves all 4 limbs Dx/Plan (1) Meningitis Code(s): G03.9 - MENINGITIS, UNSPECIFIED Status: Acute (2) Sepsis with acute organ dysfunction Code(s): A41.9 - SEPSIS, UNSPECIFIED ORGANISM; R65.20 - SEVERE SEPSIS WITHOUT SEPTIC SHOCK Status: Acute Comment: due to #1 (3) HLD (hyperlipidemia) Code(s): E78.5 - HYPERLIPIDEMIA, UNSPECIFIED Status: Chronic Qualifiers: Hyperlipidemia type: unspecified Qualified Code(s): E78.5 - Hyperlipidemia , unspecified (4) HTN (hypertension) Code(s): I10 - ESSENTIAL (PRIMARY) HYPERTENSION Status: Chronic Qualifiers: Hypertension type: essential hypertension Qualified Code(s): I10 - Essential (primary) hypertension (5) GERD (gastroesophageal reflux disease) Code(s): K21.9 - GASTRO-ESOPHAGEAL REFLUX DISEASE WITHOUT ESOPHAGITIS Status: Chronic Qualifiers: Esophagitis presence: esophagitis presence not specified Qualified Code(s) : K21.9 - Gastro-esophageal reflux disease without esophagitis (6) Depression Code(s): F32.9 - MAJOR DEPRESSIVE DISORDER, SINGLE EPISODE, UNSPECIFIED Status : Chronic - Plan DVT proph w/SCDs Cont Atbx per ID -: Replace PICC line -: Replace Potassium -: DC IVF Review of Systems - Review of Systems Respiratory: negative: Cough, Dry, Shortness of Breath, Hemoptysis, SOB with Excertion, Pleuritic Pain, Sputum, Wheezing Cardiovascular: negative: chest pain, palpitations, orthopnea, paroxysmal nocturnal dyspnea, edema, light headedness, other - Medications/Allergies Allergies/Adverse Reactions: Allergies Allergy/AdvReac Type Severity Reaction Status Date / Time hydrocodone [Hydrocodone] Allergy Verified 07/28/18 12:06 Sulfa (Sulfonamide Allergy Verified 07/28/18 12:06 Antibiotics) Medications: Current Medications Acetaminophen (Tylenol) 650 mg PO Q4H PRN PRN Reason: Headache/Fever/Mild Pain (1-3) Hydrocodone Bitart/Acetaminophen ([place] 10/325) 1 tab PO Q4H PRN PRN Reason: PAIN (1-3) Last Admin: 08/27/18 20:12 Dose: 1 tab Hydrocodone Bitart/Acetaminophen ([place] 10/325) 2 tab PO Q4H PRN PRN Reason: PAIN (4-6) Last Admin: 08/30/18 06:10 Dose: 2 tab Al Hydroxide/Mg Hydroxide (Maalox) 30 ml PO Q4H PRN PRN Reason: Heartburn or Indigestion Ascorbic Acid (Vitamin C) 1,000 mg PO DAILY [facility] Last Admin: 08/30/18 10:45 Dose: Not Given Atorvastatin Calcium (Lipitor) 20 mg PO [facility] Last Admin: 08/29/18 20:02 Dose: 20 mg Cholecalciferol (Vitamin D3) 1,000 units PO DAILY [facility] Last Admin: 08/30/18 10:44 Dose: 1,000 units Escitalopram Oxalate (Lexapro) 20 mg PO DAILY [facility] Last Admin: 08/30/18 10:45 Dose: 20 mg Folic Acid (Folvite) 0.5 mg PO DAILY [facility] Last Admin: 08/30/18 10:44 Dose: 0.5 mg Meropenem 2 gm/ Miscellaneous Medication 1 each/ Sodium Chloride 100 mls @ 0 mls/hr IVPB Q8HR [facility] Last Admin: 08/30/18 13:31 Dose: 100 mls Iron/Minerals/Multivitamins (Theragran M) 1 tab PO DAILY [facility] Last Admin: 08/30/18 10:43 Dose: 1 tab Magnesium Hydroxide (Milk Of Magnesium) 30 ml PO Q12H PRN PRN Reason: Constipation Miscellaneous Medication (Pharmacy To Dose) 1 each IVPB PRN PRN PRN Reason: Pharmacy to dose Morphine Sulfate (Morphine) 4 mg SLOW IVP Q1H PRN PRN Reason: SEVERE BREAKTHROUGH PAIN Last Admin: 08/25/18 21:26 Dose: 4 mg Morphine Sulfate (Morphine) 2 mg SLOW IVP Q1H PRN PRN Reason: Moderate Breakthrough Pain Last Admin: 08/24/18 17:00 Dose: 2 mg Ondansetron HCl (Zofran) 4 mg IM Q8H PRN PRN Reason: Nausea/Vomiting Last Admin: 08/23/18 10:07 Dose: 4 mg Pantoprazole Sodium (Protonix) 40 mg PO DAILY [facility] Last Admin: 08/30/18 10:44 Dose: 40 mg Potassium Chloride (K-Dur) 20 meq PO BID-[facility] Stop: 09/01/18 17:01 Promethazine HCl (Phenergan) 12.5 mg IM Q4H PRN PRN Reason: Nausea/Vomiting Promethazine HCl (Phenergan) 12.5 mg PO Q4H PRN PRN Reason: Nausea/Vomiting Promethazine HCl (Phenergan Suppository) 12.5 mg NE Q4H PRN PRN Reason: Nausea/Vomiting Saccharomyces Boulardii (Florastor) 250 mg PO DAILY [facility] Last Admin: 08/30/18 10:44 Dose: 250 mg Senna/Docusate Sodium (Senokot S) 2 tab PO BID [facility] Last Admin: 08/30/18 10:45 Dose: Not Given Sodium Chloride (Flush - Normal Saline) 10 ml IVF Q12HR [facility] Last Admin: 08/30/18 10:45 Dose: 10 ml Sodium Chloride (Flush - Normal Saline) 10 ml IVF PRN PRN PRN Reason: Saline Flush Last Admin: 08/23/18 00:24 Dose: 10 ml Tizanidine HCl (Zanaflex) 4 mg PO Q6H PRN PRN Reason: MUSCLE SPASM Tramadol HCl (Ultram) 50 mg PO Q6H PRN PRN Reason: PAIN (1-3) Tramadol HCl (Ultram) 100 mg PO Q6H PRN PRN Reason: PAIN (4-6)
[2018-08-30] MEDS: Potassium Chloride 20 MEQ TAB PO SCH (17:51)
[2018-08-30] MEDS: Atorvastatin Calcium 20 MG TAB PO SCH (20:46)
[2018-08-31] MEDS: HYDROcodone/Acetaminophen 10/325 mg Tablet PO PRN ×3 (03:10→14:49)
[2018-08-31] MEDS: Meropenem 2 GM, Admixture Fee 1 EACH in Sodium Chloride 0.9% 100 ML IVPB SCH ×2 (06:29→14:43)
[2018-08-31 08:27] VITALS: BP 138/73; TEMP 98.1
[2018-08-31] MEDS: Ascorbic Acid 500 mg Chewable Tablet PO SCH (09:38)
[2018-08-31] MEDS: Senokot S 8.6-50 MG TAB PO SCH (09:38)
[2018-08-31] MEDS: Saccharomyces boulardii 250 MG CAP PO SCH (09:38)
[2018-08-31] MEDS: Folic Acid 1 MG TAB PO SCH (09:39)
[2018-08-31] MEDS: Multivitamin W/ Minerals 1 TAB PO SCH (09:39)
[2018-08-31] MEDS: Escitalopram Oxalate 20 mg Tablet PO SCH (09:39)
[2018-08-31] MEDS: Potassium Chloride 20 MEQ TAB PO SCH (09:40)
--- NOTE | 2018-09-01 02:10 | DIS ---
DATE OF ADMISSION: 08/21/2018 DATE OF DISCHARGE: 08/31/2018 HOSPITAL COURSE: The patient is a 73-year-old female known to us from prior L5-S1 decompression and fusion, who postoperatively developed CSF leaf and required readmission on 08/21/2018, for lumbar drain placement. During admission, the patient also developed a fever, with workup with labs, CT of the chest, as well as cultures of blood, urine, and CSF. The patient was found to have CSF findings suggestive of meningitis. ID was consulted and recommended IV vancomycin and cefepime. This is initiated during her admission and continued throughout her course. During her admission, lumbar drain was removed following one week. Unfortunately, shortly after removal, the patient has developed return of CSF drainage from the incision. The following day, she underwent lumbar wound revision, where the patient was found to have wound infection. There was minimal CSF leak found at that time. The wound was washed out and repaired with DuraSeal. Further details of this operation can be found in Dr. Farrar's operative report. The patient improved during her visit. She was no longer having significant back pain, postural headaches, or fever. She remained on IV antibiotics and underwent PICC line placement. Dr. Castellon will arrange long-term outpatient IV antibiotics and we will plan to follow up with her office in 2 weeks for incisional recheck. I have discussed precautions, prescribed the patient with some ibuprofen for pain. Please reach us in Neurosurgery for additional questions or concerns. Job ID: [id number]
[2018-09-01] MEDS ORDERED: Heparin 1,000 UNITS/ML VIAL ONE (13:39)
== END 2018-08-31 16:02 | disposition home or self-care (01) | DRG 28 ==
LOC: SURG A 12:02 → SJJU 21:45 → IMCU/EMU 08-22 15:07 → SJJU 08-28 14:15
PROVIDERS: ADMIT Neurological Surgery; ATTEND Neurological Surgery
PROC: 009Y3ZZ Drainage of Lumbar Spinal Cord, Percutaneous Approach (ICD-10-PCS; principal; 2018-08-21)
PROC: 0HQ6XZZ Repair Back Skin, External Approach (ICD-10-PCS; 2018-08-21)
PROC: 00UT0JZ Supplement Spinal Meninges with Synthetic Substitute, Open Approach (ICD-10-PCS; 2018-08-29)
PROC: 02H633Z Insertion of Infusion Device into Right Atrium, Percutaneous Approach (ICD-10-PCS; 2018-08-30)
DX: G97.82 Other postprocedural complications and disorders of nervous system (principal); A41.9 Sepsis, unspecified organism; G03.9 Meningitis, unspecified; R65.20 Severe sepsis without septic shock; G96.0 Cerebrospinal fluid leak; G96.19 Other disorders of meninges, not elsewhere classified; I10 Essential (primary) hypertension; E78.5 Hyperlipidemia, unspecified; L94.0 Localized scleroderma [morphea]; K21.9 Gastro-esophageal reflux disease without esophagitis; F32.9 Major depressive disorder, single episode, unspecified; Z88.5 Allergy status to narcotic agent; Z88.2 Allergy status to sulfonamides; Y83.8 Other surgical procedures as the cause of abnormal reaction of the patient, or of later complication, without mention of misadventure at the time of the procedure
CPT/HCPCS: 36415; 36416; 36569; 71045; 71275; 80048; 80053; 80076; 80202; 81003; 82945; 83690; 83735; 84157; 85025; 85060; 85610; 85652; 85730; 87040; 87070; 87086; 87102; 87205; 89051; 93970; C1751; G8978-GP-CJ; G8979-GP-CJ; G8980-GP-CJ; G8987-GO-CI; G8988-GO-CI; G8989-GO-CI; J1100; J1170; J1200; J1644; J1885; J2001; J2185; J2250; J2270; J2405; J2704; J3010; J3370; J3490; J7050

== ENCOUNTER 2020-03-27 10:48 | Outpatient (CLI) | payer MEDICARE, BC ==
--- NOTE | 2020-03-27 11:57 | RAD ---
Exam: 5 views lumbar spine HISTORY: Back pain times a few months. Lumbar radiculopathy FINDINGS: 5 lumbar type vertebra. Lumbar spine vertebral body height is maintained. No fracture. Vacuum disc phenomenon at L5-S1. In the neutral position, no spondylolisthesis. No abnormal motion upon flexion or extension. Mild hypertrophic changes of the posterior elements at L4-L5 and L5-S1. Partial lumbarization of S1. Visualized sacrum and bony pelvis are intact IMPRESSION: Degenerative changes of lumbosacral junction.
--- NOTE | 2020-03-27 13:06 | MRI ---
MRI LUMBAR SPINE WITH AND WITHOUT CONTRAST: DATE: 03/27/2020 HISTORY: 75-year-old female with "M 51.16 intervertebral disc disorder with radiculopathy, and low back pain" COMPARISON: 04/21/2018 TECHNIQUE: Multiple sequences obtained in axial and sagittal planes, pre and post IV injection of gadolinium-bas ed contrast agent. FINDINGS: Review of lumbar spine radiograph of 03/27/[address] pulmonary angiogram of 08/23/2018 demonstrates 12 fully formed paired ribs and 6 lumbar type vertebrae. For the purposes of this report, the first nonrib-bearing lumbar vertebra will be designated as L1, and the L1-L5 levels will be designated acco rdingly, similar to 04/21/2018 report. However, whereas the prior report labeled the lumbosacral transitional vertebra as S1, the current report will labeled as L6. Vertebral body heights are maintained. Conus medullaris terminates at upper L1 level. No major bone m arrow signal abnormality. T12-L1:Essentially normal L1-2:Minimal disc bulge. Otherwise essentially normal. L2-3:Mild disc bulge. No central stenosis. No high-grade neural foraminal stenosis. No high-grade dis c space narrowing. L3-4:Mild disc space narrowing. Disc bulge. Mild to moderate bilateral neural foraminal stenosis, lef t greater than right. Moderate bilateral facet DJD with hypertrophy. Ligamentum flavum thickening has slightly worsened. Degree of central spinal canal stenosis, moderate, has slightly worsened. Post erior epidural fat pad. Moderate to severe thecal sac stenosis is slightly worse now. L4-5:Moderate disc space narrowing. Slight retrolisthesis of L4 on L5. Prominent diffuse disc bulge. Moderate bilateral neural foraminal stenosis. Mild to moderate bilateral facet DJD. Moderate ligamentum flavum thickening. Moderate central spinal canal stenosis is similar to prior study, but t here is now a slightly larger small posterior epidural fat pad, such that the degree of thecal sac stenosis is now worse, somewhat severe. L5-6:Moderate to severe disc space narrowing. Degenerative endplate changes including Modic type II c hanges. There is a new midline laminectomy defect relieving the previously demonstrated high-grade central spinal canal stenosis. Currently there is no high-grade central spinal canal stenosis. Somewh at severe bilateral facet DJD remains. Mild to moderate right neural foraminal stenosis and moderate left neural foraminal stenosis. Enhancing postsurgical scar tissue in the lateral recesses b ilaterally, surrounding the bilateral S1 nerve roots. L6-S1: No acquired central or neural foraminal stenosis. Hypoplastic disc. IMPRESSION: 1) transitional level at lumbosacral junction. 2) lumbar spondylosis, with multilevel degenerative disc disease ranging from mild to moderately vaishali re, and multilevel high-grade facet osteoarthrosis. 3) status post midline laminectomy at L5-6, relieving the previously demonstrated high-grade central spinal canal stenosis at that level. 4) high-grade central spinal canal stenosis at L4-5, slightly worse since prior study. 5) central spinal canal stenosis at L3-4 is also slightly worse.
== END 2020-03-27 10:49 | disposition home or self-care (01) ==
LOC: BICMRI 10:48
PROVIDERS: ATTEND Specialist
DX: M51.16 Intervertebral disc disorders with radiculopathy, lumbar region (principal); M47.26 Other spondylosis with radiculopathy, lumbar region; M47.817 Spondylosis without myelopathy or radiculopathy, lumbosacral region; M48.061 Spinal stenosis, lumbar region without neurogenic claudication; Q76.49 Other congenital malformations of spine, not associated with scoliosis; Z98.890 Other specified postprocedural states
CPT/HCPCS: 72110; 72158; 82565

== ENCOUNTER 2021-05-13 10:29 | Outpatient (CLI) | payer MEDICARE, BC | END 2021-05-13 10:30 | disposition home or self-care (01) | LOC: TBSIIMAG 10:29 | PROVIDERS: ATTEND Nurse Practitioner Family | DX: M47.24 Other spondylosis with radiculopathy, thoracic region (principal) | CPT/HCPCS: 72146 ==

== ENCOUNTER 2025-07-23 11:15 | Emergency (ER) | payer MEDICARE ==
[~2025-07-23 11:15] MED LIST: Iopamidol-370 76% 500 ML MDV (1 ML CHARGE) ONE
[2025-07-23 12:15] LABS: Bacteria/HPF None Seen HPF (None Seen); CAUTI Indications for Culture Pelvic or flank pain; Glucose, Urine (Dipstick) Normal (Negative); Leukocyte Negative Leu/uL (Negative); Protein, Urine (Dipstick) Negative (Neg-Trace); RBC/HPF 0-3 HPF (0-3); Specific Gravity, Urine 1.014 (1.002-1.036)
[2025-07-23 12:18] LABS: Urine Culture Reflex No No
[2025-07-23] MEDS ORDERED: Ondansetron PF 4 MG/2 ML Vial ONE (13:33)
[2025-07-23 14:19] LABS: #Basophils 0.06 10x3/uL (0.0-0.2); #Eosinophils 0.23 10x3/uL (0.0-0.7); #Monocytes 0.77 10x3/uL (0.11-0.59); #Neutrophils 5.64 10x3/uL (1.40-6.50); %Basophils 0.6 % (0.0-1.0); %Eosinophils 2.4 % (0.0-10.0); %Lymphocytes 28.4 % (21.0-51.0); %Monocytes 8.2 % (0.0-10.0); %Neutrophils 60.2 % (42.0-75.0); Hematocrit 40.3 % (36.0-47.0); Hemoglobin 13.3 g/dL (12.0-16.0); Mean Corpuscular Hemoglobin 30.6 pg (27.0-31.0); Mean Corpuscular Volume 92.9 fL (78.0-98.0); Platelet Count 307 10x3/uL (130-400); Red Blood Cell (RBC) Count 4.34 mill/uL (4.20-5.40); White Blood Cell (WBC) Count 9.39 10x3/uL (4.8-10.8)
[2025-07-23 14:42] LABS: ALT (SGPT) 18 U/L (Less than 34); AST (SGOT) 32 U/L (11-34); Albumin 3.7 g/dL (3.1-4.5); Alkaline Phosphatase 73 U/L (40-110); Anion Gap 12 mmol/L (10-20); BUN (Urea Nitrogen) 12 mg/dL (9.8-20.1); Bilirubin, Total 0.5 mg/dL (0.3-1.2); Calc. Creatinine Clearance 0 mL/min (70-130); Calcium 9.2 mg/dL (7.8-10.44); Carbon Dioxide 24 mmol/L (23-31); Chloride 108 mmol/L (98-107); Globulin 2.9 g/dL (2.4-3.5); Glucose 81 mg/dL (83-110); Lipase 18 U/L (8-78); Potassium 3.8 mmol/L (3.5-5.1); Sodium 140 mmol/L (136-145)
== END 2025-07-23 19:05 ==
LOC: ERS 11:15
DX: R10.9 Unspecified abdominal pain (principal); F32.A Depression, unspecified
CPT/HCPCS: 36415; 74177; 80053; 81001; 83605; 83690; 85025; 96374; 96375; 96376; J2270; J2405